=== PATIENT | female | born 2000 | race Caucasian/White ===

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

== ENCOUNTER 2019-06-01 18:19 | Emergency (ER) | payer OTHER ==
[~2019-06-01] VITALS: Ht 170.1 cm; Wt 90.7 kg
[~2019-06-01 18:19] MED LIST changes: +CEPHALEXIN500 M1 PO
[2019-06-01 18:20] VITALS: BP 121/76
[2019-06-01 18:49] LABS: BILIRUBIN NEGATIVE (NEGATIVE); BLOOD 3+ (NEGATIVE); CLARITY CLOUDY (CLEAR); COLOR YELLOW (YELLOW); GLUCOSE NEGATIVE (NEGATIVE); KETONE NEGATIVE (NEGATIVE); LEUKO ESTERASE 3+ (NEGATIVE); NITRITE POSITIVE (NEGATIVE); SPECIFIC GRAVITY 1.015 (1.005-1.030)
[2019-06-01 18:56] LABS: BACTERIA 4+; MUCOUS 2+; WBC TNTC wbc/hpf (0-5)
[2019-06-01] MEDS ORDERED: CEFUROXIME AXE500 MG PO (19:35)
[2019-06-02] MEDS ORDERED: CEFUROXIME AXE500 MG PO (13:06)
== END 2019-06-01 19:44 | disposition home or self-care (01) ==
LOC: ED 18:19
PROVIDERS: Nurse Practitioner Family
DX: B34.9 Viral infection, unspecified (principal); N39.0 Urinary tract infection, site not specified; J02.9 Acute pharyngitis, unspecified; Z72.0 Tobacco use

== ENCOUNTER 2019-07-01 18:46 | Emergency (ER) | payer OTHER ==
[~2019-07-01] VITALS: Ht 170.1 cm; Wt 90.7 kg
[~2019-07-01 18:46] MED LIST changes: +CEFUROXIME AXE500 MG PO
[2019-07-01 18:47] VITALS: BP 122/78
[2019-07-01 19:34] LABS: BILIRUBIN NEGATIVE (NEGATIVE); BLOOD 3+ (NEGATIVE); CLARITY SL CLOUDY (CLEAR); COLOR YELLOW (YELLOW); GLUCOSE NEGATIVE (NEGATIVE); KETONE NEGATIVE (NEGATIVE); LEUKO ESTERASE 1+ (NEGATIVE); NITRITE NEGATIVE (NEGATIVE); PH 5.5 (5.0-9.0); SPECIFIC GRAVITY 1.025 (1.005-1.030); UROBILINOGEN 0.2 E.U./dl (0.2-1.0)
[2019-07-01 19:42] LABS: BACTERIA 2+; WBC 21-30 wbc/hpf (0-5)
[2019-07-01 20:14] LABS: BASO % 0.3 % (0.0-1.0); EOS # 0.2 10*3/uL (0.0-0.4); EOS % 2.5 % (1.0-4.0); HEMATOCRIT 37.4 % (37.0-47.0); HEMOGLOBIN 11.7 g/dl (12.0-16.0); LYMPH # 1.8 10*3/uL (1.3-4.4); LYMPH % 30.3 % (27.0-41.0); MEAN CELL VOLUME 91.9 fl (81.0-99.0); MEAN CORPUSCULAR HGB 28.7 pg (27.0-31.0); MEAN CORPUSCULAR HGB CONC 31.3 g/dl (33.0-37.0); MEAN PLATELET VOLUME 10.5 fl (9.6-12.3); MONO # 0.7 10*3/uL (0.1-1.0); MONO % 11.7 % (3.0-9.0); NEUT # 3.3 10*3/uL (2.3-7.9); NEUT % 54.9 % (47.0-73.0); PLATELET COUNT AUTOMATED 170 10*3/uL (130-400); RED BLOOD COUNT 4.07 10*6/uL (4.10-5.10); RED CELL DISTRI WIDTH 14.1 % (0-14.5)
[2019-07-01 20:30] LABS: ALBUMIN 3.3 gm/dl (3.1-4.5); ALKALINE PHOSPHATASE 74 U/L (45-117); BUN 7 mg/dl (7-24); CHLORIDE 101 mmol/L (98-107); CREATININE 0.67 mg/dL (0.55-1.02); LIPASE 72 U/L (73-393); POTASSIUM 3.5 mmol/L (3.5-5.1); SGOT/AST 8 IU/L (3-35); SGPT/ALT 20 U/L (12-78); SODIUM 137 mmol/L (136-145)
[2019-07-01] MEDS ORDERED: CITROMA296 ML PO (20:48)
[2019-07-01] MEDS ORDERED: SEPTDS PO (20:48)
== END 2019-07-01 20:53 | disposition home or self-care (01) ==
LOC: ED 18:46
PROVIDERS: Physician Assistant
DX: N39.0 Urinary tract infection, site not specified (principal); F17.200 Nicotine dependence, unspecified, uncomplicated

== ENCOUNTER 2019-07-03 02:22 | Emergency (ER) | payer OTHER ==
[~2019-07-03] VITALS: Ht 172.7 cm; Wt 90.7 kg
[~2019-07-03 02:22] MED LIST changes: +CITROMA296 ML PO; +SEPTDS PO
[2019-07-03 02:49] LABS: BASO % 0.4 % (0.0-1.0); EOS # 0.1 10*3/uL (0.0-0.4); HEMOGLOBIN 11.7 g/dl (12.0-16.0); LYMPH # 1.8 10*3/uL (1.3-4.4); LYMPH % 37.5 % (27.0-41.0); MEAN CELL VOLUME 89.6 fl (81.0-99.0); MEAN CORPUSCULAR HGB 28.3 pg (27.0-31.0); MEAN CORPUSCULAR HGB CONC 31.6 g/dl (33.0-37.0); MEAN PLATELET VOLUME 10.3 fl (9.6-12.3); MONO # 0.5 10*3/uL (0.1-1.0); MONO % 9.8 % (3.0-9.0); NEUT # 2.3 10*3/uL (2.3-7.9); NEUT % 49.1 % (47.0-73.0); PLATELET COUNT AUTOMATED 190 10*3/uL (130-400); RED BLOOD COUNT 4.13 10*6/uL (4.10-5.10); WHITE BLOOD COUNT 4.7 10*3/uL (4.8-10.8)
[2019-07-03 03:05] LABS: ALBUMIN 3.6 gm/dl (3.1-4.5); ALKALINE PHOSPHATASE 69 U/L (45-117); BUN 6 mg/dl (7-24); CHLORIDE 103 mmol/L (98-107); CREATININE 0.85 mg/dL (0.55-1.02); POTASSIUM 3.9 mmol/L (3.5-5.1); SGOT/AST 11 IU/L (3-35); SGPT/ALT 20 U/L (12-78); SODIUM 137 mmol/L (136-145); TOTAL PROTEIN 7.2 gm/dL (6.4-8.2)
[2019-07-03 03:14] LABS: TROPONIN I < 0.015 ng/ml (<0.045)
[2019-07-03 03:36] LABS: URINE AMPHETAMINES > 1000 (1000ng/ml); URINE BARBITURATES < 200 (200ng/ml); URINE BENZODIAZEPINES < 200 (200ng/ml); URINE CANNABINOIDS (THC) < 50 (50ng/ml); URINE COCAINE < 300 (300ng/ml); URINE METHADONE < 300 (300ng/ml); URINE OPIATES < 300 (300ng/ml)
[2019-07-03 03:37] LABS: URINE PHENCYCLIDINE < 25 (25ng/ml)
[2019-07-03 05:22] VITALS: BP 101/61
== END 2019-07-03 06:40 | disposition home or self-care (01) ==
LOC: ED 02:22
PROVIDERS: Emergency Medicine
DX: R07.89 Other chest pain (principal); R00.2 Palpitations; F15.10 Other stimulant abuse, uncomplicated; E66.9 Obesity, unspecified; F17.200 Nicotine dependence, unspecified, uncomplicated; Z68.34 Body mass index [BMI] 34.0-34.9, adult

== ENCOUNTER → 2019-08-13 | Outpatient (CLI) | payer OTHER ==
[~2019-08-13] MED LIST changes: +PRENATAL TABLE1 EAC2 PO
== END | disposition home or self-care (01) ==
LOC: CARD 01:25
DX: F19.10 Other psychoactive substance abuse, uncomplicated (principal)

== ENCOUNTER 2019-08-23 21:18 | Emergency (ER) | payer OTHER ==
[~2019-08-23] VITALS: Ht 172.7 cm; Wt 87.1 kg
[~2019-08-23 21:18] MED LIST changes: -PRENATAL TABLE1 EAC2 PO
[2019-08-23 21:30] VITALS: BP 106/59
[2019-08-23 22:37] LABS: BILIRUBIN NEGATIVE (NEGATIVE); BLOOD NEGATIVE (NEGATIVE); CLARITY CLEAR (CLEAR); COLOR YELLOW (YELLOW); GLUCOSE NEGATIVE (NEGATIVE); KETONE NEGATIVE (NEGATIVE); LEUKO ESTERASE NEGATIVE (NEGATIVE); NITRITE NEGATIVE (NEGATIVE); SPECIFIC GRAVITY >= 1.030 (1.005-1.030); UROBILINOGEN 0.2 E.U./dl (0.2-1.0)
[2019-08-23 22:45] LABS: BACTERIA TRACE; MUCOUS TRACE
[2019-08-23] MEDS ORDERED: PRENATAL TABLE1 EAC2 PO (23:29)
[2019-08-23 23:47] LABS: URINE AMPHETAMINES > 1000 (1000ng/ml); URINE BARBITURATES < 200 (200ng/ml); URINE BENZODIAZEPINES < 200 (200ng/ml); URINE CANNABINOIDS (THC) < 50 (50ng/ml); URINE COCAINE < 300 (300ng/ml); URINE METHADONE < 300 (300ng/ml); URINE OPIATES < 300 (300ng/ml)
[2019-08-23 23:48] LABS: URINE PHENCYCLIDINE < 25 (25ng/ml)
== END 2019-08-23 23:40 | disposition home or self-care (01) ==
LOC: ED 21:18
PROVIDERS: Nurse Practitioner Family
DX: Z32.01 Encounter for pregnancy test, result positive (principal); E66.9 Obesity, unspecified; F17.200 Nicotine dependence, unspecified, uncomplicated

== ENCOUNTER 2019-08-29 18:37 | Emergency (ER) | payer OTHER ==
[~2019-08-29] VITALS: Ht 170.1 cm; Wt 87.1 kg
[~2019-08-29 18:37] MED LIST changes: +PRENATAL TABLE1 EAC2 PO
[2019-08-29 18:39] VITALS: BP 122/64
== END 2019-08-29 21:34 | disposition home or self-care (01) ==
LOC: ED 18:37
DX: O9A.211 Injury, poisoning and certain other consequences of external causes complicating pregnancy, first trimester (principal); S96.911A Strain of unspecified muscle and tendon at ankle and foot level, right foot, initial encounter; E66.9 Obesity, unspecified; Z3A.08 8 weeks gestation of pregnancy; Z72.0 Tobacco use; W10.8XXA Fall (on) (from) other stairs and steps, initial encounter; Y93.89 Activity, other specified; Y92.89 Other specified places as the place of occurrence of the external cause; Y99.8 Other external cause status

== ENCOUNTER → 2019-09-19 | Outpatient (CLI) | payer OTHER | END | disposition home or self-care (01) | LOC: US 13:00 | DX: Z34.81 Encounter for supervision of other normal pregnancy, first trimester (principal); Z3A.01 Less than 8 weeks gestation of pregnancy ==

== ENCOUNTER 2020-03-22 18:51 | Emergency (ER) | payer OTHER ==
[~2020-03-22] VITALS: Ht 170.1 cm; Wt 108.9 kg
[2020-03-22 18:59] VITALS: BP 122/69
[2020-03-22] MEDS ORDERED: PREDNISONE20 M1 PO (19:10)
[2020-03-22] MEDS ORDERED: CEFADROXIL500 M1 PO (19:10)
== END 2020-03-22 19:20 | disposition home or self-care (01) ==
LOC: ED 18:51
DX: L25.9 Unspecified contact dermatitis, unspecified cause (principal); L08.9 Local infection of the skin and subcutaneous tissue, unspecified; Z72.0 Tobacco use

== ENCOUNTER 2020-07-29 19:33 | Emergency (ER) | payer OTHER ==
[~2020-07-29] VITALS: Ht 170.1 cm; Wt 99.8 kg
[~2020-07-29 19:33] MED LIST changes: +CEFADROXIL500 M1 PO; +PREDNISONE20 M1 PO
[2020-07-29 19:45] VITALS: BP 121/75
== END 2020-07-29 21:52 | disposition home or self-care (01) ==
LOC: ED 19:33
DX: J06.9 Acute upper respiratory infection, unspecified (principal); Z20.828 Contact with and (suspected) exposure to other viral communicable diseases; Z79.899 Other long term (current) drug therapy

== ENCOUNTER 2020-08-11 20:07 | Emergency (ER) | payer OTHER ==
[2020-08-11 20:17] VITALS: BP 114/65
[2020-08-11] MEDS ORDERED: CEPHALEXIN500 M1 PO (20:25)
== END 2020-08-11 20:35 | disposition home or self-care (01) ==
LOC: ED 20:07
DX: S51.802A Unspecified open wound of left forearm, initial encounter (principal); Z79.899 Other long term (current) drug therapy; X58.XXXA Exposure to other specified factors, initial encounter; Y93.89 Activity, other specified; Y92.89 Other specified places as the place of occurrence of the external cause; Y99.8 Other external cause status

== ENCOUNTER 2020-10-25 19:46 | Emergency (ER) | payer OTHER ==
[~2020-10-25] VITALS: Ht 170.1 cm; Wt 99.8 kg
[2020-10-25 21:08] LABS: BASO % 0.6 % (0.0-1.0); EOS # 0.4 10*3/uL (0.0-0.4); EOS % 5.2 % (1.0-4.0); HEMATOCRIT 37.5 % (37.0-47.0); LYMPH # 1.9 10*3/uL (1.3-4.4); MEAN CELL VOLUME 84.1 fl (81.0-99.0); MEAN CORPUSCULAR HGB 26.2 pg (27.0-31.0); MEAN CORPUSCULAR HGB CONC 31.2 g/dl (33.0-37.0); MEAN PLATELET VOLUME 10.7 fl (9.6-12.3); MONO # 0.6 10*3/uL (0.1-1.0); MONO % 9.1 % (3.0-9.0); NEUT # 3.7 10*3/uL (2.3-7.9); NEUT % 55.8 % (47.0-73.0); PLATELET COUNT AUTOMATED 253 10*3/uL (130-400); RED BLOOD COUNT 4.46 10*6/uL (4.10-5.10); RED CELL DISTRI WIDTH 15.9 % (0-14.5); WHITE BLOOD COUNT 6.7 10*3/uL (4.8-10.8)
[2020-10-25 21:23] LABS: INTERNATIONAL NORM RATIO 1.1 (2.0-3.5)
[2020-10-25 21:24] LABS: ALBUMIN 3.5 gm/dl (3.1-4.5); ALKALINE PHOSPHATASE 62 U/L (45-117); BUN 9 mg/dl (7-24); CHLORIDE 108 mmol/L (98-107); CREATININE 1.55 mg/dL (0.55-1.02); POTASSIUM 4.6 mmol/L (3.5-5.1); SGOT/AST 31 IU/L (3-35); SGPT/ALT 32 U/L (12-78); SODIUM 141 mmol/L (136-145); TOTAL PROTEIN 6.8 gm/dL (6.4-8.2)
[2020-10-25 21:25] LABS: B-hCG (QUALITATIVE) NEGATIVE (NEGATIVE)
[2020-10-25 21:26] LABS: TROPONIN I < 0.015 ng/ml (<0.045)
[2020-10-25 22:49] LABS: BILIRUBIN Negative (Negative); BLOOD Negative (Negative); CLARITY Cloudy (Clear); COLOR Yellow (Yellow); GLUCOSE Negative (Negative); KETONE Negative (Negative); LEUKO ESTERASE Negative (Negative); NITRITE Negative (Negative); SPECIFIC GRAVITY 1.015 (1.001-1.030)
[2020-10-25 23:01] LABS: BACTERIA TRACE; RBC 0-2 rbc/hpf (0-2); WBC 0-2 wbc/hpf (0-5)
[2020-10-25 23:19] LABS: URINE AMPHETAMINES > 1000 (1000ng/ml); URINE BARBITURATES < 200 (200ng/ml); URINE BENZODIAZEPINES < 200 (200ng/ml); URINE CANNABINOIDS (THC) < 50 (50ng/ml); URINE COCAINE < 300 (300ng/ml); URINE METHADONE < 300 (300ng/ml); URINE OPIATES < 300 (300ng/ml)
[2020-10-25 23:21] LABS: URINE PHENCYCLIDINE < 25 (25ng/ml)
[2020-10-26 02:14] VITALS: BP 101/54
== END 2020-10-26 02:55 | disposition short-term general hospital (02) ==
LOC: ED 19:46
PROVIDERS: Physician Assistant
DX: R60.9 Edema, unspecified (principal); M54.2 Cervicalgia; R45.1 Restlessness and agitation; F17.200 Nicotine dependence, unspecified, uncomplicated; Z79.899 Other long term (current) drug therapy; Z79.2 Long term (current) use of antibiotics; F11.90 Opioid use, unspecified, uncomplicated

== ENCOUNTER 2021-01-09 18:29 | Emergency (ER) | payer OTHER ==
[~2021-01-09] VITALS: Ht 172.7 cm; Wt 90.7 kg
[2021-01-09 18:49] LABS: BASO % 0.8 % (0.0-1.0); EOS # 0.2 10*3/uL (0.0-0.4); EOS % 4.7 % (1.0-4.0); HEMATOCRIT 37.3 % (37.0-47.0); LYMPH # 2.6 10*3/uL (1.3-4.4); LYMPH % 50.3 % (27.0-41.0); MEAN CORPUSCULAR HGB 24.8 pg (27.0-31.0); MEAN CORPUSCULAR HGB CONC 30.3 g/dl (33.0-37.0); MEAN PLATELET VOLUME 9.1 fl (9.6-12.3); MONO # 0.4 10*3/uL (0.1-1.0); MONO % 7.7 % (3.0-9.0); NEUT # 1.9 10*3/uL (2.3-7.9); NEUT % 36.5 % (47.0-73.0); PLATELET COUNT AUTOMATED 192 10*3/uL (130-400); RED BLOOD COUNT 4.55 10*6/uL (4.10-5.10); RED CELL DISTRI WIDTH 15.4 % (0-14.5); WHITE BLOOD COUNT 5.1 10*3/uL (4.8-10.8)
[2021-01-09 19:04] LABS: ACT PARTIAL THROMBO TIME 26.9 SECONDS (20.0-32.1); INTERNATIONAL NORM RATIO 1.1 (2.0-3.5)
[2021-01-09 19:07] LABS: ALBUMIN 3.4 gm/dl (3.1-4.5); ALKALINE PHOSPHATASE 68 U/L (45-117); BUN 14 mg/dl (7-24); CHLORIDE 106 mmol/L (98-107); CPK 362 U/L (26-192); CREATININE 1.04 mg/dL (0.55-1.02); ETHYL ALCOHOL < 3.0 mg/dl (<3); POTASSIUM 3.4 mmol/L (3.5-5.1); SGOT/AST 15 IU/L (3-35); SGPT/ALT 29 U/L (12-78); SODIUM 141 mmol/L (136-145); TOTAL PROTEIN 6.8 gm/dL (6.4-8.2)
[2021-01-09 19:10] LABS: B-hCG (QUALITATIVE) NEGATIVE (NEGATIVE)
[2021-01-09 22:00] VITALS: BP 118/82
== END 2021-01-09 23:29 ==
LOC: ED 18:29
PROVIDERS: Emergency Medicine
DX: F41.9 Anxiety disorder, unspecified (principal); F17.200 Nicotine dependence, unspecified, uncomplicated; E66.9 Obesity, unspecified; Z68.34 Body mass index [BMI] 34.0-34.9, adult; Z79.899 Other long term (current) drug therapy

== ENCOUNTER 2021-05-02 09:02 | Emergency (ER) | payer OTHER ==
[~2021-05-02] VITALS: Ht 170.1 cm; Wt 90.7 kg
[2021-05-02 09:07] VITALS: BP 111/73
[2021-05-02] MEDS ORDERED: NAPROXEN250 MG PO (09:49)
[2021-05-02] MEDS ORDERED: TYLENOL325 M1 PO (09:49)
== END 2021-05-02 10:08 | disposition home or self-care (01) ==
LOC: ED 09:02
DX: R20.2 Paresthesia of skin (principal); F41.9 Anxiety disorder, unspecified; E66.9 Obesity, unspecified; F17.200 Nicotine dependence, unspecified, uncomplicated; Z79.899 Other long term (current) drug therapy; Z79.2 Long term (current) use of antibiotics; Z68.30 Body mass index [BMI] 30.0-30.9, adult

== ENCOUNTER 2021-05-04 22:27 | Emergency (ER) | payer OTHER ==
[~2021-05-04] VITALS: Ht 175.2 cm; Wt 90.7 kg
[~2021-05-04 22:27] MED LIST changes: +NAPROXEN250 MG PO; +TYLENOL325 M1 PO
[2021-05-04 22:32] VITALS: BP 133/92
== END 2021-05-05 01:36 | disposition home or self-care (01) ==
LOC: ED 22:27
DX: T40.1X1A Poisoning by heroin, accidental (unintentional), initial encounter (principal); Y92.89 Other specified places as the place of occurrence of the external cause

== ENCOUNTER 2021-05-06 16:10 | Emergency (ER) | payer OTHER ==
[~2021-05-06] VITALS: Wt 90.7 kg
[2021-05-06 17:08] LABS: HEMATOCRIT 41.8 % (37.0-47.0); MEAN CELL VOLUME 79.6 fl (81.0-99.0); MEAN CORPUSCULAR HGB CONC 28.9 g/dl (33.0-37.0); MEAN PLATELET VOLUME 10.3 fl (9.6-12.3); PLATELET COUNT AUTOMATED 189 10*3/uL (130-400); RED BLOOD COUNT 5.25 10*6/uL (4.10-5.10); RED CELL DISTRI WIDTH 15.7 % (0-14.5); WHITE BLOOD COUNT 5.4 10*3/uL (4.8-10.8)
[2021-05-06 17:22] LABS: ALBUMIN 3.5 gm/dl (3.1-4.5); ALKALINE PHOSPHATASE 77 U/L (45-117); BUN 9 mg/dl (7-24); CHLORIDE 108 mmol/L (98-107); CREATININE 0.97 mg/dL (0.55-1.02); LIPASE 114 U/L (73-393); POTASSIUM 4.4 mmol/L (3.5-5.1); SGOT/AST 25 IU/L (3-35); SGPT/ALT 43 U/L (12-78); SODIUM 141 mmol/L (136-145); TOTAL PROTEIN 7.2 gm/dL (6.4-8.2)
[2021-05-06 17:25] LABS: BETA-HCG, QUANT < 1.0 mIU/mL (1-3); TROPONIN I < 0.015 ng/ml (<0.045)
[2021-05-06 17:31] LABS: ATYPICAL LYMPHS 2 % (0-0); PLATELET SUFFICIENCY NORMAL (NORMAL); TOTAL CELLS COUNTED 100 #CELLS
[2021-05-06 17:32] LABS: OVALOCYTES FEW
[2021-05-06 17:55] VITALS: BP 108/59
== END 2021-05-06 19:30 | disposition left against medical advice (07) ==
LOC: ED 16:10
PROVIDERS: Emergency Medicine
DX: R11.10 Vomiting, unspecified (principal); R11.0 Nausea; R10.9 Unspecified abdominal pain; R61 Generalized hyperhidrosis

== ENCOUNTER 2021-05-25 23:33 | Emergency (ER) | payer OTHER ==
[~2021-05-25] VITALS: Ht 170.1 cm; Wt 90.7 kg
[2021-05-26 03:30] VITALS: BP 100/65
[2021-05-26] MEDS ORDERED: CIPRO500 MG PO (04:33)
== END 2021-05-26 05:14 | disposition home or self-care (01) ==
LOC: ED 23:33
DX: L73.8 Other specified follicular disorders (principal); F17.200 Nicotine dependence, unspecified, uncomplicated; Z79.899 Other long term (current) drug therapy

== ENCOUNTER 2021-05-29 15:46 | Emergency (ER) | payer OTHER ==
[~2021-05-29] VITALS: Ht 170.1 cm; Wt 90.7 kg
[~2021-05-29 15:46] MED LIST changes: +CIPRO500 MG PO
[2021-05-29 16:03] VITALS: BP 99/61
== END 2021-05-29 20:49 | disposition left against medical advice (07) ==
LOC: ED 15:46
DX: T40.1X1A Poisoning by heroin, accidental (unintentional), initial encounter (principal); Y92.89 Other specified places as the place of occurrence of the external cause

== ENCOUNTER 2021-06-20 16:12 | Emergency (ER) | payer OTHER ==
[~2021-06-20] VITALS: Ht 170.1 cm; Wt 90.7 kg
[2021-06-20 17:13] VITALS: BP 136/67
[2021-06-20 18:13] LABS: BASO % 0.4 % (0.0-1.0); EOS # 0.3 10*3/uL (0.0-0.4); EOS % 3.4 % (1.0-4.0); HEMATOCRIT 32.8 % (37.0-47.0); LYMPH # 2.2 10*3/uL (1.3-4.4); LYMPH % 27.5 % (27.0-41.0); MEAN CELL VOLUME 75.4 fl (81.0-99.0); MEAN CORPUSCULAR HGB 21.4 pg (27.0-31.0); MEAN CORPUSCULAR HGB CONC 28.4 g/dl (33.0-37.0); MONO # 0.7 10*3/uL (0.1-1.0); MONO % 9.3 % (3.0-9.0); NEUT # 4.7 10*3/uL (2.3-7.9); PLATELET COUNT AUTOMATED 337 10*3/uL (130-400); RED BLOOD COUNT 4.35 10*6/uL (4.10-5.10); RED CELL DISTRI WIDTH 16.6 % (0-14.5); WHITE BLOOD COUNT 7.9 10*3/uL (4.8-10.8)
[2021-06-20 18:28] LABS: ALBUMIN 3.1 gm/dl (3.1-4.5); ALKALINE PHOSPHATASE 89 U/L (45-117); BUN 9 mg/dl (7-24); CHLORIDE 108 mmol/L (98-107); CREATININE 0.97 mg/dL (0.55-1.02); POTASSIUM 3.5 mmol/L (3.5-5.1); SGOT/AST 49 IU/L (3-35); SGPT/ALT 86 U/L (12-78); SODIUM 141 mmol/L (136-145); TOTAL PROTEIN 7.5 gm/dL (6.4-8.2)
[2021-06-20] MEDS ORDERED: VIBRAMYCIN100 MG PO (19:35)
== END 2021-06-20 19:40 | disposition home or self-care (01) ==
LOC: ED 16:12
PROVIDERS: Internal Medicine
DX: L03.114 Cellulitis of left upper limb (principal); F17.200 Nicotine dependence, unspecified, uncomplicated; Z79.899 Other long term (current) drug therapy; Z79.2 Long term (current) use of antibiotics

== ENCOUNTER 2021-07-11 14:56 | Emergency (ER) | payer OTHER ==
[~2021-07-11 14:56] MED LIST changes: +VIBRAMYCIN100 MG PO
[2021-07-11 15:14] VITALS: BP 123/63
[2021-07-11] MEDS ORDERED: AMOXICILLIN875 MG PO (15:31)
[2021-07-11] MEDS ORDERED: VICO10300 PO (15:31)
== END 2021-07-11 15:44 | disposition home or self-care (01) ==
LOC: ED 14:56
DX: L02.01 Cutaneous abscess of face (principal); F17.200 Nicotine dependence, unspecified, uncomplicated; Z79.899 Other long term (current) drug therapy; Z79.2 Long term (current) use of antibiotics

== ENCOUNTER 2021-07-13 22:52 | Emergency (ER) | payer OTHER ==
[~2021-07-13] VITALS: Ht 170.1 cm; Wt 103.4 kg
[~2021-07-13 22:52] MED LIST changes: +AMOXICILLIN875 MG PO; +VICO10300 PO
[2021-07-13 22:55] VITALS: BP 149/71
== END 2021-07-14 00:21 | disposition home or self-care (01) ==
LOC: ED 22:52
DX: T40.1X2A Poisoning by heroin, intentional self-harm, initial encounter (principal); F17.200 Nicotine dependence, unspecified, uncomplicated; Y92.89 Other specified places as the place of occurrence of the external cause

== ENCOUNTER 2021-08-09 11:45 | Emergency (ER) | payer SELFPAY ==
[~2021-08-09] VITALS: Ht 175.2 cm; Wt 90.7 kg
[2021-08-09 11:46] VITALS: BP 134/102
[2021-08-09 12:10] LABS: BASO % 0.4 % (0.0-1.0); EOS # 0.1 10*3/uL (0.0-0.4); EOS % 2.4 % (1.0-4.0); LYMPH # 1.7 10*3/uL (1.3-4.4); LYMPH % 33.3 % (27.0-41.0); MEAN CELL VOLUME 75.4 fl (81.0-99.0); MEAN CORPUSCULAR HGB CONC 29.2 g/dl (33.0-37.0); MEAN PLATELET VOLUME 8.9 fl (9.6-12.3); MONO # 0.5 10*3/uL (0.1-1.0); NEUT # 2.7 10*3/uL (2.3-7.9); NEUT % 54.7 % (47.0-73.0); PLATELET COUNT AUTOMATED 214 10*3/uL (130-400); RED BLOOD COUNT 4.91 10*6/uL (4.10-5.10); RED CELL DISTRI WIDTH 19.5 % (0-14.5)
[2021-08-09 12:24] LABS: ALBUMIN 3.4 gm/dl (3.1-4.5); ALKALINE PHOSPHATASE 94 U/L (45-117); BUN 11 mg/dl (7-24); CHLORIDE 107 mmol/L (98-107); CREATININE 0.91 mg/dL (0.55-1.02); POTASSIUM 3.3 mmol/L (3.5-5.1); SGOT/AST 102 IU/L (3-35); SGPT/ALT 128 U/L (12-78); SODIUM 139 mmol/L (136-145); TOTAL PROTEIN 7.4 gm/dL (6.4-8.2)
== END 2021-08-09 14:25 | disposition left against medical advice (07) ==
LOC: ED 11:45
PROVIDERS: Physician Assistant
DX: T40.1X1A Poisoning by heroin, accidental (unintentional), initial encounter (principal); Y92.89 Other specified places as the place of occurrence of the external cause

== ENCOUNTER 2021-09-07 23:41 | Emergency (ER) | payer MEDICAID ==
[2021-09-07 23:54] VITALS: BP 120/76
[2021-09-08] MEDS ORDERED: AUGMENTIN 875875 MG PO (00:19)
[2021-09-08] MEDS ORDERED: VIBRAMYCIN100 MG PO (00:19)
== END 2021-09-08 00:57 | disposition home or self-care (01) ==
LOC: ED 23:41
DX: L03.011 Cellulitis of right finger (principal)

== ENCOUNTER 2021-10-14 08:17 | Emergency (ER) | payer OTHER ==
[~2021-10-14 08:17] MED LIST changes: +AUGMENTIN 875875 MG PO
[2021-10-14 08:22] VITALS: BP 125/67
[2021-10-14 08:55] LABS: BASO % 0.5 % (0.0-1.0); EOS % 0.5 % (1.0-4.0); HEMATOCRIT 23.4 % (37.0-47.0); LYMPH # 2.6 10*3/uL (1.3-4.4); LYMPH % 31.7 % (27.0-41.0); MEAN CELL VOLUME 70.5 fl (81.0-99.0); MEAN CORPUSCULAR HGB 21.4 pg (27.0-31.0); MEAN CORPUSCULAR HGB CONC 30.3 g/dl (33.0-37.0); MEAN PLATELET VOLUME 10.1 fl (9.6-12.3); MONO % 12.1 % (3.0-9.0); NEUT # 4.4 10*3/uL (2.3-7.9); NEUT % 54.3 % (47.0-73.0); PLATELET COUNT AUTOMATED 161 10*3/uL (130-400); RED BLOOD COUNT 3.32 10*6/uL (4.10-5.10); RED CELL DISTRI WIDTH 17.3 % (0-14.5); WHITE BLOOD COUNT 8.2 10*3/uL (4.8-10.8)
[2021-10-14 09:09] LABS: ALBUMIN 2.2 gm/dl (3.1-4.5); ALKALINE PHOSPHATASE 107 U/L (45-117); BUN 22 mg/dl (7-24); CHLORIDE 102 mmol/L (98-107); CREATININE 1.09 mg/dL (0.55-1.02); LIPASE 38 U/L (73-393); POTASSIUM 3.1 mmol/L (3.5-5.1); SGOT/AST 52 IU/L (3-35); SGPT/ALT 36 U/L (12-78); SODIUM 137 mmol/L (136-145); TOTAL PROTEIN 7.2 gm/dL (6.4-8.2)
[2021-10-14 09:11] LABS: BETA-HCG, QUANT < 1.0 mIU/mL (1-3)
[2021-10-14] MEDS ORDERED: ZITHROMAX250 MG PO (11:07)
== END 2021-10-14 11:09 | disposition home or self-care (01) ==
LOC: ED 08:17
PROVIDERS: Emergency Medicine
DX: J18.9 Pneumonia, unspecified organism (principal); Z20.822 Contact with and (suspected) exposure to COVID-19; D64.9 Anemia, unspecified; Z87.891 Personal history of nicotine dependence

== ENCOUNTER 2021-10-15 10:50 | Inpatient (IN) | payer OTHER ==
[~2021-10-15] VITALS: Ht 170.1 cm; Wt 85.3 kg
[~2021-10-15 10:50] MED LIST changes: +ZITHROMAX250 MG PO
[2021-10-15 10:57] VITALS: BP 106/95
[2021-10-15 12:08] LABS: BASO # 0.1 10*3/uL (0.0-0.1); BASO % 0.6 % (0.0-1.0); EOS # 0.1 10*3/uL (0.0-0.4); EOS % 0.6 % (1.0-4.0); HEMATOCRIT 24.9 % (37.0-47.0); LYMPH # 2.1 10*3/uL (1.3-4.4); LYMPH % 19.2 % (27.0-41.0); MEAN CELL VOLUME 69.4 fl (81.0-99.0); MEAN CORPUSCULAR HGB 21.2 pg (27.0-31.0); MEAN CORPUSCULAR HGB CONC 30.5 g/dl (33.0-37.0); MONO # 0.7 10*3/uL (0.1-1.0); MONO % 6.7 % (3.0-9.0); NEUT # 7.8 10*3/uL (2.3-7.9); NEUT % 72.3 % (47.0-73.0); NUCLEATED RED BLOOD CELL 0.2 % (0.0-0.0); RED BLOOD COUNT 3.59 10*6/uL (4.10-5.10); RED CELL DISTRI WIDTH 17.5 % (0-14.5); WHITE BLOOD COUNT 10.8 10*3/uL (4.8-10.8)
[2021-10-15 12:09] LABS: PLATELET COUNT AUTOMATED 258 10*3/uL (130-400)
[2021-10-15 12:15] LABS: ACT PARTIAL THROMBO TIME 26.2 SECONDS (20.0-32.1); INTERNATIONAL NORM RATIO 1.3 (2.0-3.5)
[2021-10-15 12:21] LABS: ALBUMIN 2.4 gm/dl (3.1-4.5); BUN 25 mg/dl (7-24); CHLORIDE 101 mmol/L (98-107); CREATININE 1.43 mg/dL (0.55-1.02); LIPASE 29 U/L (73-393); POTASSIUM 3.3 mmol/L (3.5-5.1); SGOT/AST 35 IU/L (3-35); SGPT/ALT 34 U/L (12-78); SODIUM 133 mmol/L (136-145)
[2021-10-15 12:22] LABS: ALKALINE PHOSPHATASE 104 U/L (45-117); TOTAL PROTEIN 7.3 gm/dL (6.4-8.2)
[2021-10-15 12:35] LABS: BETA-HCG, QUANT < 1.0 mIU/mL (1-3)
[2021-10-15 12:52] LABS: BILIRUBIN 1+ (Negative); BLOOD 3+ (Negative); CLARITY Cloudy (Clear); COLOR Dark Yellow (Yellow); GLUCOSE Negative (Negative); KETONE Trace (Negative); LEUKO ESTERASE Trace (Negative); NITRITE Negative (Negative); PH 5.5 (4.5-8.0); SPECIFIC GRAVITY >= 1.030 (1.001-1.030)
[2021-10-15 13:21] LABS: BACTERIA 2+; EPITHELIAL CELLS 21-30; MUCOUS 2+; RBC TNTC rbc/hpf (0-2); WBC 21-30 wbc/hpf (0-5)
[2021-10-15 18:59] VITALS: BP 154/67
[2021-10-15 22:17] VITALS: BP 113/45
[2021-10-16 05:18] VITALS: BP 114/67
[2021-10-16 06:14] LABS: HEMATOCRIT 24.4 % (37.0-47.0); MEAN CORPUSCULAR HGB 21.3 pg (27.0-31.0); MEAN CORPUSCULAR HGB CONC 29.1 g/dl (33.0-37.0); MEAN PLATELET VOLUME 11.1 fl (9.6-12.3); NUCLEATED RED BLOOD CELL 0.3 % (0.0-0.0); PLATELET COUNT AUTOMATED 210 10*3/uL (130-400); RED BLOOD COUNT 3.34 10*6/uL (4.10-5.10); RED CELL DISTRI WIDTH 17.6 % (0-14.5); WHITE BLOOD COUNT 7.7 10*3/uL (4.8-10.8)
[2021-10-16 06:18] LABS: ALBUMIN 1.9 gm/dl (3.1-4.5); CHLORIDE 108 mmol/L (98-107); POTASSIUM 3.2 mmol/L (3.5-5.1); SODIUM 139 mmol/L (136-145)
[2021-10-16 06:27] LABS: ALKALINE PHOSPHATASE 84 U/L (45-117); CHOLESTEROL 84 mg/dL (<200); CREATININE 0.94 mg/dL (0.55-1.02); FREE T4 1.66 ng/dl (0.76-1.46); LDL CHOLESTEROL 40 mg/dL (9-159); SGOT/AST 22 IU/L (3-35); SGPT/ALT 26 U/L (12-78); TOTAL PROTEIN 6.2 gm/dL (6.4-8.2); TRIGLYCERIDES 174 mg/dl (<150)
[2021-10-16 06:31] LABS: ACT PARTIAL THROMBO TIME 25.5 SECONDS (20.0-32.1); INTERNATIONAL NORM RATIO 1.2 (2.0-3.5)
[2021-10-16 06:33] LABS: BUN 15 mg/dl (7-24)
[2021-10-16 06:49] LABS: MEAN CELL VOLUME 73.1 fl (81.0-99.0)
[2021-10-16 06:54] LABS: BASOPHILS 2 % (0-1); BURR CELLS MODERATE; OVALOCYTES MODERATE; PLATELET SUFFICIENCY NORMAL (NORMAL); POLYCHROMASIA SLIGHT; TOTAL CELLS COUNTED 100 #CELLS
[2021-10-16 06:55] LABS: MICROCYTOSIS SLIGHT
[2021-10-16 07:50] VITALS: BP 113/82
[2021-10-16 08:00] VITALS: BP 113/82
[2021-10-16] MEDS ORDERED: BUPRENORPHINE-1 EAC1 SL (09:35)
[2021-10-16 12:00] VITALS: BP 126/63
[2021-10-16 16:00] VITALS: BP 125/66
[2021-10-16 19:45] VITALS: BP 122/54
[2021-10-16 23:24] LABS: URINE AMPHETAMINES > 1000 (1000ng/ml); URINE BARBITURATES < 200 (200ng/ml); URINE BENZODIAZEPINES < 200 (200ng/ml); URINE CANNABINOIDS (THC) < 50 (50ng/ml); URINE COCAINE < 300 (300ng/ml); URINE METHADONE < 300 (300ng/ml); URINE OPIATES < 300 (300ng/ml)
[2021-10-16 23:29] LABS: URINE PHENCYCLIDINE < 25 (25ng/ml)
[2021-10-17] VITALS (19 sets, daily range): BP systolic 100–122; BP diastolic 54–73
[2021-10-17 06:55] LABS: MEAN CELL VOLUME 73.3 fl (81.0-99.0); MEAN CORPUSCULAR HGB 21.9 pg (27.0-31.0); MEAN CORPUSCULAR HGB CONC 29.8 g/dl (33.0-37.0); MEAN PLATELET VOLUME 9.1 fl (9.6-12.3); PLATELET COUNT AUTOMATED 164 10*3/uL (130-400); RED CELL DISTRI WIDTH 17.9 % (0-14.5)
[2021-10-17 07:08] LABS: ALBUMIN 1.7 gm/dl (3.1-4.5); BUN 8 mg/dl (7-24); CHLORIDE 108 mmol/L (98-107); POTASSIUM 3.8 mmol/L (3.5-5.1); SODIUM 138 mmol/L (136-145)
[2021-10-17 07:09] LABS: HEMATOCRIT 19.8 % (37.0-47.0)
[2021-10-17 07:12] LABS: ALKALINE PHOSPHATASE 74 U/L (45-117); CREATININE 0.75 mg/dL (0.55-1.02); SGOT/AST 11 IU/L (3-35); SGPT/ALT 18 U/L (12-78); TOTAL PROTEIN 5.8 gm/dL (6.4-8.2)
[2021-10-17 07:16] LABS: BASOPHILS 1 % (0-1); MICROCYTOSIS SLIGHT; PLATELET SUFFICIENCY NORMAL (NORMAL); TOTAL CELLS COUNTED 100 #CELLS
[2021-10-17 07:17] LABS: OVALOCYTES FEW; POLYCHROMASIA SLIGHT
[2021-10-17 17:48] LABS: BASO % 0.3 % (0.0-1.0); EOS # 0.1 10*3/uL (0.0-0.4); EOS % 0.7 % (1.0-4.0); HEMATOCRIT 25.5 % (37.0-47.0); LYMPH # 1.8 10*3/uL (1.3-4.4); LYMPH % 26.5 % (27.0-41.0); MEAN CELL VOLUME 74.6 fl (81.0-99.0); MEAN CORPUSCULAR HGB 22.5 pg (27.0-31.0); MEAN CORPUSCULAR HGB CONC 30.2 g/dl (33.0-37.0); MEAN PLATELET VOLUME 9.2 fl (9.6-12.3); MONO # 0.5 10*3/uL (0.1-1.0); MONO % 6.9 % (3.0-9.0); NEUT # 4.4 10*3/uL (2.3-7.9); NEUT % 64.7 % (47.0-73.0); NUCLEATED RED BLOOD CELL 0.3 % (0.0-0.0); PLATELET COUNT AUTOMATED 181 10*3/uL (130-400); RED BLOOD COUNT 3.42 10*6/uL (4.10-5.10); RED CELL DISTRI WIDTH 18.7 % (0-14.5); WHITE BLOOD COUNT 6.8 10*3/uL (4.8-10.8)
[2021-10-17 19:54] LABS: BASO % 0.3 % (0.0-1.0); EOS % 0.6 % (1.0-4.0); HEMATOCRIT 25.4 % (37.0-47.0); LYMPH # 1.9 10*3/uL (1.3-4.4); LYMPH % 27.3 % (27.0-41.0); MEAN CELL VOLUME 75.1 fl (81.0-99.0); MEAN CORPUSCULAR HGB 22.5 pg (27.0-31.0); MEAN CORPUSCULAR HGB CONC 29.9 g/dl (33.0-37.0); MEAN PLATELET VOLUME 9.4 fl (9.6-12.3); MONO # 0.6 10*3/uL (0.1-1.0); MONO % 9.3 % (3.0-9.0); NEUT # 4.2 10*3/uL (2.3-7.9); NEUT % 61.8 % (47.0-73.0); NUCLEATED RED BLOOD CELL 0.3 % (0.0-0.0); PLATELET COUNT AUTOMATED 176 10*3/uL (130-400); RED BLOOD COUNT 3.38 10*6/uL (4.10-5.10); RED CELL DISTRI WIDTH 19.1 % (0-14.5); WHITE BLOOD COUNT 6.8 10*3/uL (4.8-10.8)
[2021-10-18] VITALS: BP 114/65
[2021-10-18 06:26] LABS: ALBUMIN 1.5 gm/dl (3.1-4.5); ALKALINE PHOSPHATASE 66 U/L (45-117); BUN 9 mg/dl (7-24); CHLORIDE 108 mmol/L (98-107); CREATININE 0.52 mg/dL (0.55-1.02); POTASSIUM 4.1 mmol/L (3.5-5.1); SGOT/AST 10 IU/L (3-35); SGPT/ALT 13 U/L (12-78); SODIUM 139 mmol/L (136-145); TOTAL PROTEIN 5.6 gm/dL (6.4-8.2)
[2021-10-18 06:27] LABS: BASO % 0.3 % (0.0-1.0); EOS # 0.1 10*3/uL (0.0-0.4); EOS % 1.2 % (1.0-4.0); LYMPH # 1.7 10*3/uL (1.3-4.4); LYMPH % 27.9 % (27.0-41.0); MEAN CELL VOLUME 74.9 fl (81.0-99.0); MEAN CORPUSCULAR HGB 22.5 pg (27.0-31.0); MEAN PLATELET VOLUME 9.8 fl (9.6-12.3); MONO # 0.5 10*3/uL (0.1-1.0); MONO % 7.6 % (3.0-9.0); NEUT # 3.8 10*3/uL (2.3-7.9); NEUT % 61.8 % (47.0-73.0); PLATELET COUNT AUTOMATED 181 10*3/uL (130-400); RED BLOOD COUNT 3.47 10*6/uL (4.10-5.10); RED CELL DISTRI WIDTH 19.4 % (0-14.5); WHITE BLOOD COUNT 6.1 10*3/uL (4.8-10.8)
[2021-10-18 08:00] VITALS: BP 111/59
[2021-10-18 12:00] VITALS: BP 102/55
[2021-10-18 16:00] VITALS: BP 118/68
[2021-10-18 20:00] VITALS: BP 116/60
[2021-10-19] VITALS: BP 98/60
[2021-10-19 06:48] LABS: ALBUMIN 1.5 gm/dl (3.1-4.5); ALKALINE PHOSPHATASE 73 U/L (45-117); BASO % 0.4 % (0.0-1.0); BUN 7 mg/dl (7-24); CHLORIDE 109 mmol/L (98-107); CREATININE 0.52 mg/dL (0.55-1.02); EOS # 0.1 10*3/uL (0.0-0.4); EOS % 1.4 % (1.0-4.0); HEMATOCRIT 28.9 % (37.0-47.0); LYMPH # 1.8 10*3/uL (1.3-4.4); LYMPH % 31.5 % (27.0-41.0); MEAN CELL VOLUME 76.1 fl (81.0-99.0); MEAN CORPUSCULAR HGB 22.6 pg (27.0-31.0); MEAN CORPUSCULAR HGB CONC 29.8 g/dl (33.0-37.0); MEAN PLATELET VOLUME 9.8 fl (9.6-12.3); MONO # 0.5 10*3/uL (0.1-1.0); MONO % 8.5 % (3.0-9.0); NEUT # 3.2 10*3/uL (2.3-7.9); NEUT % 56.6 % (47.0-73.0); PLATELET COUNT AUTOMATED 204 10*3/uL (130-400); POTASSIUM 4.1 mmol/L (3.5-5.1); RED CELL DISTRI WIDTH 20.5 % (0-14.5); SGOT/AST 9 IU/L (3-35); SGPT/ALT 12 U/L (12-78); SODIUM 139 mmol/L (136-145); TOTAL PROTEIN 6.2 gm/dL (6.4-8.2); WHITE BLOOD COUNT 5.6 10*3/uL (4.8-10.8)
[2021-10-19 08:00] VITALS: BP 117/76
[2021-10-19 08:08] LABS: HEP B CORE AB, IGM Negative (Negative); HEPATITIS B SURFACE AG Negative (Negative)
[2021-10-19 08:24] LABS: HEPATITIS C VIRUS ANTIBODY >11.0 s/co (0.0-0.9)
[2021-10-20 00:06] LABS: TB1 Ag VALUE 0.07 IU/mL (.)
== END 2021-10-19 10:08 | disposition short-term general hospital (02) | DRG 193 ==
LOC: ED 10:50 → EDHOLD 10-16 04:10 → 5E 10-16 04:10
PROVIDERS: Emergency Medicine; Hospitalist; Internal Medicine; Internal Medicine Infectious Disease; Student in an Organized Health Care Education/Training Program; ADMIT Family Medicine; ATTEND Family Medicine
PROC: 02HV33Z Insertion of Infusion Device into Superior Vena Cava, Percutaneous Approach (ICD-10-PCS; 2021-10-16)
PROC: B548ZZA Ultrasonography of Superior Vena Cava, Guidance (ICD-10-PCS; 2021-10-16)
PROC: 30233N1 Transfusion of Nonautologous Red Blood Cells into Peripheral Vein, Percutaneous Approach (ICD-10-PCS; principal; 2021-10-17)
DX: I33.9 Acute and subacute endocarditis, unspecified (principal); E87.1 Hypo-osmolality and hyponatremia; N17.0 Acute kidney failure with tubular necrosis; F19.90 Other psychoactive substance use, unspecified, uncomplicated; E43 Unspecified severe protein-calorie malnutrition; A41.9 Sepsis, unspecified organism; D50.9 Iron deficiency anemia, unspecified; E87.6 Hypokalemia; E66.3 Overweight; I07.1 Rheumatic tricuspid insufficiency; I27.20 Pulmonary hypertension, unspecified; Z79.1 Long term (current) use of non-steroidal anti-inflammatories (NSAID); Z79.899 Other long term (current) drug therapy

== ENCOUNTER 2021-12-18 06:00 | Emergency (ER) | payer OTHER ==
[~2021-12-18] VITALS: Ht 172.7 cm; Wt 81.6 kg
[~2021-12-18 06:00] MED LIST changes: +BUPRENORPHINE-1 EAC1 SL
[2021-12-18 06:17] VITALS: BP 118/85
== END 2021-12-18 06:48 | disposition left against medical advice (07) ==
LOC: ED 06:00
DX: R50.9 Fever, unspecified (principal); Z79.899 Other long term (current) drug therapy

== ENCOUNTER 2022-04-15 22:09 | Emergency (ER) | payer OTHER ==
[~2022-04-15] VITALS: Ht 170.1 cm; Wt 86.2 kg
[2022-04-15 22:36] VITALS: BP 106/58
[2022-04-15] MEDS ORDERED: SEPTDS PO (22:38)
[2022-04-15] MEDS ORDERED: CEPHALEXIN500 M1 PO (22:38)
== END 2022-04-15 22:54 | disposition home or self-care (01) ==
LOC: ED 22:09
DX: L25.9 Unspecified contact dermatitis, unspecified cause (principal); L50.9 Urticaria, unspecified; F17.200 Nicotine dependence, unspecified, uncomplicated

== ENCOUNTER 2022-05-04 13:48 | Emergency (ER) | payer OTHER ==
[~2022-05-04] VITALS: Wt 86.2 kg
[2022-05-04 13:56] VITALS: BP 123/61
== END 2022-05-04 15:53 | disposition home or self-care (01) ==
LOC: ED 13:48
DX: S92.511A Displaced fracture of proximal phalanx of right lesser toe(s), initial encounter for closed fracture (principal); W22.8XXA Striking against or struck by other objects, initial encounter; Y93.89 Activity, other specified; Y92.89 Other specified places as the place of occurrence of the external cause; Y99.8 Other external cause status

== ENCOUNTER 2022-05-13 10:17 | Emergency (ER) | payer OTHER ==
[2022-05-13 10:31] VITALS: BP 124/78
[2022-05-13] MEDS ORDERED: VIBRA-TAB100 MG PO (11:23)
== END 2022-05-13 11:36 | disposition home or self-care (01) ==
LOC: ED 10:17
DX: L03.113 Cellulitis of right upper limb (principal); Z90.89 Acquired absence of other organs; F17.200 Nicotine dependence, unspecified, uncomplicated

== ENCOUNTER 2022-06-20 08:53 | Inpatient (IN) | payer OTHER ==
[~2022-06-20] VITALS: Ht 170.1 cm; Wt 80.3 kg
[~2022-06-20 08:53] MED LIST changes: +VIBRA-TAB100 MG PO
[2022-06-20 08:56] VITALS: BP 115/64
[2022-06-20 09:26] LABS: BASO # 0.1 10*3/uL (0.0-0.1); BASO % 1.2 % (0.0-1.0); EOS # 0.3 10*3/uL (0.0-0.4); EOS % 5.9 % (1.0-4.0); HEMATOCRIT 36.1 % (37.0-47.0); LYMPH # 2.5 10*3/uL (1.3-4.4); LYMPH % 49.7 % (27.0-41.0); MEAN CELL VOLUME 78.3 fl (81.0-99.0); MEAN CORPUSCULAR HGB CONC 29.4 g/dl (33.0-37.0); MEAN PLATELET VOLUME 9.7 fl (9.6-12.3); MONO # 0.3 10*3/uL (0.1-1.0); MONO % 6.9 % (3.0-9.0); NEUT # 1.8 10*3/uL (2.3-7.9); NEUT % 36.3 % (47.0-73.0); PLATELET COUNT AUTOMATED 218 10*3/uL (130-400); RED BLOOD COUNT 4.61 10*6/uL (4.10-5.10); RED CELL DISTRI WIDTH 16.1 % (0-14.5); WHITE BLOOD COUNT 4.9 10*3/uL (4.8-10.8)
[2022-06-20 09:51] LABS: BILIRUBIN Negative (Negative); BLOOD Negative (Negative); CLARITY Clear (Clear); COLOR Yellow (Yellow); GLUCOSE Negative (Negative); KETONE Negative (Negative); LEUKO ESTERASE Trace (Negative); NITRITE Negative (Negative); SPECIFIC GRAVITY 1.025 (1.001-1.030); UROBILINOGEN 0.2 E.U./dl (0.0-1.0)
[2022-06-20 09:54] LABS: ALKALINE PHOSPHATASE 86 U/L (45-117); BUN 13 mg/dl (7-24); CHLORIDE 111 mmol/L (98-107); CREATININE 0.73 mg/dL (0.55-1.02); POTASSIUM 4.4 mmol/L (3.5-5.1); SGOT/AST 25 IU/L (3-35); SGPT/ALT 37 U/L (12-78); SODIUM 142 mmol/L (136-145); TOTAL PROTEIN 6.8 gm/dL (6.4-8.2)
[2022-06-20 09:59] LABS: RBC 0-2 rbc/hpf (0-2)
[2022-06-20 10:01] LABS: URINE AMPHETAMINES > 1000 (1000ng/ml); URINE BARBITURATES < 200 (200ng/ml); URINE BENZODIAZEPINES < 200 (200ng/ml); URINE CANNABINOIDS (THC) < 50 (50ng/ml); URINE COCAINE < 300 (300ng/ml); URINE METHADONE < 300 (300ng/ml); URINE OPIATES < 300 (300ng/ml)
[2022-06-20 10:10] LABS: URINE PHENCYCLIDINE < 25 (25ng/ml)
[2022-06-20 11:09] VITALS: BP 118/68
[2022-06-20 11:45] VITALS: BP 103/71
[2022-06-20 16:00] VITALS: BP 98/62
[2022-06-20 20:00] VITALS: BP 101/54
[2022-06-21] VITALS: BP 96/51
[2022-06-21 08:00] VITALS: BP 98/55
[2022-06-21 12:00] VITALS: BP 98/50
[2022-06-21 16:00] VITALS: BP 101/53
[2022-06-21 20:00] VITALS: BP 100/49
[2022-06-22] VITALS: BP 98/64
[2022-06-22 08:00] VITALS: BP 101/62
[2022-06-22 12:00] VITALS: BP 98/50
[2022-06-22 16:00] VITALS: BP 97/52
[2022-06-22 20:00] VITALS: BP 107/72
[2022-06-23] VITALS: BP 102/65
== END 2022-06-23 12:02 | disposition home or self-care (01) | DRG 773 ==
LOC: ED 08:53 → EDHOLD 10:55 → 4E 10:55
PROVIDERS: Internal Medicine; ADMIT Internal Medicine; ATTEND Internal Medicine
DX: F11.23 Opioid dependence with withdrawal (principal); F15.10 Other stimulant abuse, uncomplicated; F41.9 Anxiety disorder, unspecified; F19.10 Other psychoactive substance abuse, uncomplicated; F17.210 Nicotine dependence, cigarettes, uncomplicated; E16.2 Hypoglycemia, unspecified; D50.9 Iron deficiency anemia, unspecified; E87.8 Other disorders of electrolyte and fluid balance, not elsewhere classified; Z71.6 Tobacco abuse counseling; Z83.79 Family history of other diseases of the digestive system

== ENCOUNTER 2022-07-27 15:45 | Emergency (ER) | payer OTHER ==
[~2022-07-27] VITALS: Ht 172 cm; Wt 81.6 kg
[2022-07-27 16:16] VITALS: BP 102/59
== END 2022-07-27 19:20 | disposition home or self-care (01) ==
LOC: ED 15:45
DX: S00.83XA Contusion of other part of head, initial encounter (principal); F17.200 Nicotine dependence, unspecified, uncomplicated; W10.8XXA Fall (on) (from) other stairs and steps, initial encounter; Y93.89 Activity, other specified; Y92.89 Other specified places as the place of occurrence of the external cause; Y99.8 Other external cause status

== ENCOUNTER 2022-11-24 11:08 | Emergency (ER) | payer OTHER ==
[~2022-11-24] VITALS: Ht 172.7 cm; Wt 90.7 kg
[2022-11-24 11:13] VITALS: BP 123/76
[2022-11-24 12:00] LABS: BILIRUBIN Negative (Negative); BLOOD 2+ (Negative); CLARITY Clear (Clear); COLOR Yellow (Yellow); GLUCOSE Negative (Negative); KETONE Negative (Negative); LEUKO ESTERASE 1+ (Negative); NITRITE Negative (Negative); SPECIFIC GRAVITY 1.015 (1.001-1.030); UROBILINOGEN 0.2 E.U./dl (0.0-1.0)
== END 2022-11-24 12:32 | disposition home or self-care (01) ==
LOC: ED 11:08
PROVIDERS: Nurse Practitioner Family
DX: R10.2 Pelvic and perineal pain (principal); Z90.89 Acquired absence of other organs; F17.200 Nicotine dependence, unspecified, uncomplicated

== ENCOUNTER 2022-12-07 19:24 | Emergency (ER) | payer OTHER ==
[~2022-12-07] VITALS: Ht 172.7 cm; Wt 90.7 kg
[2022-12-07 19:43] VITALS: BP 115/71
[2022-12-07] MEDS ORDERED: IBUPROFEN600 MG PO (22:03)
[2022-12-07] MEDS ORDERED: CEPHALEXIN500 M1 PO (22:03)
== END 2022-12-07 22:19 | disposition home or self-care (01) ==
LOC: ED 19:24
DX: L60.0 Ingrowing nail (principal); Z90.89 Acquired absence of other organs; F17.200 Nicotine dependence, unspecified, uncomplicated; F19.90 Other psychoactive substance use, unspecified, uncomplicated

== ENCOUNTER 2022-12-28 20:12 | Emergency (ER) | payer OTHER ==
[~2022-12-28] VITALS: Ht 172.7 cm; Wt 90.7 kg
[~2022-12-28 20:12] MED LIST changes: +IBUPROFEN600 MG PO
[2022-12-28 20:33] VITALS: BP 120/70
== END 2022-12-28 22:09 | disposition home or self-care (01) ==
LOC: ED 20:12
DX: S92.354A Nondisplaced fracture of fifth metatarsal bone, right foot, initial encounter for closed fracture (principal); Z90.89 Acquired absence of other organs; F17.200 Nicotine dependence, unspecified, uncomplicated; X50.1XXA Overexertion from prolonged static or awkward postures, initial encounter; Y93.89 Activity, other specified; Y92.89 Other specified places as the place of occurrence of the external cause; Y99.8 Other external cause status

== ENCOUNTER → 2023-01-09 | Outpatient (CLI) | payer OTHER | END | disposition home or self-care (01) | LOC: ORTHO 01:41 | PROVIDERS: ATTEND Orthopaedic Surgery | DX: S92.351A Displaced fracture of fifth metatarsal bone, right foot, initial encounter for closed fracture (principal); X58.XXXA Exposure to other specified factors, initial encounter; Y93.89 Activity, other specified; Y92.89 Other specified places as the place of occurrence of the external cause; Y99.8 Other external cause status ==

== ENCOUNTER 2023-01-12 00:03 | Emergency (ER) | payer OTHER ==
[~2023-01-12] VITALS: Ht 170.1 cm; Wt 90.7 kg
[2023-01-12 00:13] VITALS: BP 108/41
[2023-01-12] MEDS ORDERED: BUPRENORPHINE-1 EAC1 SL (00:16)
== END 2023-01-12 01:19 | disposition home or self-care (01) ==
LOC: ED 00:03
DX: S92.354A Nondisplaced fracture of fifth metatarsal bone, right foot, initial encounter for closed fracture (principal); F17.200 Nicotine dependence, unspecified, uncomplicated; Z79.899 Other long term (current) drug therapy; Z90.89 Acquired absence of other organs; W18.39XA Other fall on same level, initial encounter; Y93.89 Activity, other specified; Y92.89 Other specified places as the place of occurrence of the external cause; Y99.8 Other external cause status

== ENCOUNTER 2023-01-23 20:43 | Emergency (ER) | payer OTHER ==
[2023-01-23 20:59] VITALS: BP 133/65
[2023-01-23] MEDS ORDERED: SEPTDS PO (21:15)
== END 2023-01-23 21:39 | disposition home or self-care (01) ==
LOC: ED 20:43
DX: N76.4 Abscess of vulva (principal); L02.31 Cutaneous abscess of buttock; Z79.899 Other long term (current) drug therapy; Z90.89 Acquired absence of other organs; F17.200 Nicotine dependence, unspecified, uncomplicated

== ENCOUNTER → 2023-02-03 | Outpatient (CLI) | payer OTHER ==
[~2023-02-03] MED LIST changes: +ONDANSETRON4 MG SL
== END | disposition home or self-care (01) ==
LOC: ORTHO 01:30
PROVIDERS: ATTEND Orthopaedic Surgery
DX: S92.351D Displaced fracture of fifth metatarsal bone, right foot, subsequent encounter for fracture with routine healing (principal); X58.XXXD Exposure to other specified factors, subsequent encounter

== ENCOUNTER 2023-02-06 11:52 | Emergency (ER) | payer OTHER ==
[~2023-02-06] VITALS: Ht 172.7 cm; Wt 86.2 kg
[~2023-02-06 11:52] MED LIST changes: -ONDANSETRON4 MG SL
[2023-02-06 13:00] LABS: BASO % 0.7 % (0.0-1.0); EOS # 0.1 10*3/uL (0.0-0.4); EOS % 1.5 % (1.0-4.0); HEMATOCRIT 32.2 % (37.0-47.0); LYMPH # 1.8 10*3/uL (1.3-4.4); LYMPH % 32.4 % (27.0-41.0); MEAN CELL VOLUME 73.9 fl (81.0-99.0); MEAN CORPUSCULAR HGB 20.9 pg (27.0-31.0); MEAN CORPUSCULAR HGB CONC 28.3 g/dl (33.0-37.0); MEAN PLATELET VOLUME 9.2 fl (9.6-12.3); MONO # 0.4 10*3/uL (0.1-1.0); MONO % 7.4 % (3.0-9.0); NEUT # 3.1 10*3/uL (2.3-7.9); NEUT % 57.8 % (47.0-73.0); PLATELET COUNT AUTOMATED 252 10*3/uL (130-400); RED BLOOD COUNT 4.36 10*6/uL (4.10-5.10); RED CELL DISTRI WIDTH 16.8 % (0-14.5); WHITE BLOOD COUNT 5.4 10*3/uL (4.8-10.8)
[2023-02-06 13:10] LABS: ACT PARTIAL THROMBO TIME 28.5 SECONDS (20.0-32.1); INTERNATIONAL NORM RATIO 1.2 (2.0-3.5)
[2023-02-06 13:24] LABS: ALKALINE PHOSPHATASE 78 U/L (46-116); BUN 7 mg/dl (9-23); CHLORIDE 104 mmol/L (98-107); POTASSIUM 3.7 mmol/L (3.4-5.1); SGPT/ALT 23 U/L (10-49); TOTAL PROTEIN 6.5 gm/dL (6.0-8.0)
[2023-02-06 15:44] VITALS: BP 118/70
[2023-02-06] MEDS ORDERED: ONDANSETRON4 MG SL (16:11)
== END 2023-02-06 16:17 | disposition home or self-care (01) ==
LOC: ED 11:52
PROVIDERS: Physician Assistant
DX: R07.9 Chest pain, unspecified (principal); R10.9 Unspecified abdominal pain; R11.2 Nausea with vomiting, unspecified; Z79.899 Other long term (current) drug therapy; Z90.89 Acquired absence of other organs; F17.200 Nicotine dependence, unspecified, uncomplicated

== ENCOUNTER 2023-05-15 17:08 | Emergency (ER) | payer OTHER ==
[~2023-05-15] VITALS: Ht 172.7 cm; Wt 84.4 kg
[~2023-05-15 17:08] MED LIST changes: +ONDANSETRON4 MG SL
[2023-05-15 17:19] VITALS: BP 140/78
== END 2023-05-15 18:22 | disposition home or self-care (01) ==
LOC: ED 17:08
DX: S61.211A Laceration without foreign body of left index finger without damage to nail, initial encounter (principal); Z90.89 Acquired absence of other organs; F17.200 Nicotine dependence, unspecified, uncomplicated; W26.9XXA Contact with unspecified sharp object(s), initial encounter; Y93.89 Activity, other specified; Y92.89 Other specified places as the place of occurrence of the external cause; Y99.8 Other external cause status

== ENCOUNTER 2023-07-08 20:33 | Emergency (ER) | payer OTHER ==
[~2023-07-08] VITALS: Ht 165.1 cm; Wt 89.4 kg
[2023-07-08 21:12] LABS: BASO % 0.4 % (0.0-1.0); EOS # 0.2 10*3/uL (0.0-0.4); EOS % 3.2 % (1.0-4.0); HEMATOCRIT 34.5 % (37.0-47.0); LYMPH # 1.9 10*3/uL (1.3-4.4); LYMPH % 41.4 % (27.0-41.0); MEAN CELL VOLUME 75.2 fl (81.0-99.0); MEAN CORPUSCULAR HGB 22.2 pg (27.0-31.0); MEAN CORPUSCULAR HGB CONC 29.6 g/dl (33.0-37.0); MEAN PLATELET VOLUME 9.2 fl (9.6-12.3); MONO # 0.2 10*3/uL (0.1-1.0); MONO % 5.1 % (3.0-9.0); NEUT # 2.3 10*3/uL (2.3-7.9); NEUT % 49.7 % (47.0-73.0); PLATELET COUNT AUTOMATED 222 10*3/uL (130-400); RED BLOOD COUNT 4.59 10*6/uL (4.10-5.10); RED CELL DISTRI WIDTH 16.6 % (0-14.5); WHITE BLOOD COUNT 4.7 10*3/uL (4.8-10.8)
[2023-07-08 21:26] LABS: ACT PARTIAL THROMBO TIME 25.4 SECONDS (20.0-32.1); INTERNATIONAL NORM RATIO 1.1 (2.0-3.5)
[2023-07-08 21:30] VITALS: BP 134/62
[2023-07-08 21:41] LABS: ALKALINE PHOSPHATASE 71 U/L (46-116); BUN 5 mg/dl (9-23); CHLORIDE 106 mmol/L (98-107); LIPASE 27 U/L (12-53); POTASSIUM 3.5 mmol/L (3.4-5.1); SGPT/ALT 19 U/L (5-49); TOTAL PROTEIN 7.3 gm/dL (6.0-8.0)
== END 2023-07-08 23:22 | disposition home or self-care (01) ==
LOC: ED 20:33
PROVIDERS: Physician Assistant Medical
DX: R40.4 Transient alteration of awareness (principal); T40.2X1A Poisoning by other opioids, accidental (unintentional), initial encounter; Z90.89 Acquired absence of other organs; F17.290 Nicotine dependence, other tobacco product, uncomplicated; Y92.009 Unspecified place in unspecified non-institutional (private) residence as the place of occurrence of the external cause

== ENCOUNTER 2023-07-27 09:35 | Emergency (ER) | payer OTHER ==
[~2023-07-27] VITALS: Ht 170.1 cm; Wt 88.5 kg
[2023-07-27 10:28] LABS: ACT PARTIAL THROMBO TIME 32.5 SECONDS (20.0-32.1)
[2023-07-27 10:31] LABS: BILIRUBIN 1+ (Negative); BLOOD 3+ (Negative); CLARITY Turbid (Clear); COLOR Dark Yellow (Yellow); GLUCOSE Negative (Negative); KETONE Trace (Negative); LEUKO ESTERASE Trace (Negative); NITRITE Negative (Negative); SPECIFIC GRAVITY 1.025 (1.001-1.030)
[2023-07-27 10:39] LABS: URINE AMPHETAMINES Positive (1000ng/ml); URINE BARBITURATES Negative (200ng/ml); URINE BENZODIAZEPINES Negative (200ng/ml); URINE CANNABINOIDS (THC) Negative (50ng/ml); URINE COCAINE Negative (300ng/ml); URINE METHADONE Negative (300ng/ml); URINE OPIATES Negative (300ng/ml); URINE PHENCYCLIDINE Negative (25ng/ml)
[2023-07-27 10:55] LABS: BACTERIA 2+; EPITHELIAL CELLS 0-2
[2023-07-27 11:17] LABS: HEMATOCRIT 32.2 % (37.0-47.0); MEAN CELL VOLUME 67.9 fl (81.0-99.0); MEAN CORPUSCULAR HGB 22.2 pg (27.0-31.0); MEAN CORPUSCULAR HGB CONC 32.6 g/dl (33.0-37.0); PLATELET COUNT AUTOMATED 32 10*3/uL (130-400); RED BLOOD COUNT 4.74 10*6/uL (4.10-5.10); RED CELL DISTRI WIDTH 16.8 % (0-14.5); WHITE BLOOD COUNT 3.4 10*3/uL (4.8-10.8)
[2023-07-27 11:20] LABS: MANUAL DIFF REFLEX YES
[2023-07-27 11:27] LABS: ALKALINE PHOSPHATASE 62 U/L (46-116); BUN 33 mg/dl (9-23); CHLORIDE 99 mmol/L (98-107); LIPASE 31 U/L (12-53); POTASSIUM 3.8 mmol/L (3.4-5.1); SGPT/ALT 63 U/L (5-49); TOTAL PROTEIN 6.5 gm/dL (6.0-8.0)
[2023-07-27 11:30] LABS: BETA-HCG, QUANT < 3.0 mIU/mL (3-10)
[2023-07-27 11:37] LABS: ATYPICAL LYMPHS 1 % (0-0); PLATELET SUFFICIENCY LOW (NORMAL)
[2023-07-27 11:38] LABS: BURR CELLS MODERATE; MICROCYTOSIS SLIGHT; OVALOCYTES FEW; POLYCHROMASIA SLIGHT
[2023-07-27 11:49] LABS: TOTAL CELLS COUNTED 100 #CELLS
[2023-07-27 23:48] VITALS: BP 106/51
== END 2023-07-28 00:04 | disposition short-term general hospital (02) ==
LOC: ED 09:35
PROVIDERS: Emergency Medicine
DX: R65.20 Severe sepsis without septic shock (principal); I38 Endocarditis, valve unspecified; I76 Septic arterial embolism; Z79.899 Other long term (current) drug therapy; Z90.89 Acquired absence of other organs; F17.200 Nicotine dependence, unspecified, uncomplicated

== ENCOUNTER 2023-09-21 09:19 | Emergency (ER) | payer OTHER | END 2023-09-21 10:44 | disposition left against medical advice (07) | LOC: ED 09:19 | DX: S99.929A Unspecified injury of unspecified foot, initial encounter (principal); Z53.21 Procedure and treatment not carried out due to patient leaving prior to being seen by health care provider; X58.XXXA Exposure to other specified factors, initial encounter; Y93.89 Activity, other specified; Y92.89 Other specified places as the place of occurrence of the external cause; Y99.8 Other external cause status ==

== ENCOUNTER → 2023-09-27 | Outpatient (CLI) | payer OTHER ==
[~2023-09-27] MED LIST changes: +ASPIRIN ADULT L81 M1 PO; +BUMETANIDE1 MG PO; +BUMETANIDE2 MG PO; +BUSPAR15 MG PO; +BUSPAR5 MG PO; +IRON325 M3 PO; +LATU20TA PO
[2023-09-27 10:48] LABS: HEMATOCRIT 32.1 % (37.0-47.0); MEAN CELL VOLUME 86.8 fl (81.0-99.0); MEAN CORPUSCULAR HGB 27.3 pg (27.0-31.0); MEAN CORPUSCULAR HGB CONC 31.5 g/dl (33.0-37.0); MEAN PLATELET VOLUME 9.2 fl (9.6-12.3); RED BLOOD COUNT 3.7 10*6/uL (4.10-5.10); RED CELL DISTRI WIDTH 16.7 % (0-14.5); WHITE BLOOD COUNT 6.6 10*3/uL (4.8-10.8)
[2023-09-27 11:23] LABS: VITAMIN D, 25-HYDROXY 22.2 ng/mL (30-100)
[2023-09-27 11:24] LABS: ALKALINE PHOSPHATASE 83 U/L (46-116); BUN 14 mg/dl (9-23); CHLORIDE 104 mmol/L (98-107); CHOLESTEROL 168 mg/dL (<200); GAMMA GLUTAMYL TRANSPEPTIDASE 18 U/L (0-73); LDL CHOLESTEROL 94 mg/dL (9-159); POTASSIUM 3.8 mmol/L (3.4-5.1); TRIGLYCERIDES 131 mg/dl (<150)
[2023-09-27 11:25] LABS: SGPT/ALT < 7 U/L (5-49)
[2023-09-28 08:09] LABS: HBSAG Negative (Negative); HEP B CORE AB, IGM Negative (Negative)
[2023-09-29 21:06] LABS: HEPATITIS C QUANTITATION HCV Not Detected IU/mL (.)
== END | disposition home or self-care (01) ==
LOC: LAB 09:58
PROVIDERS: ATTEND Family Medicine
DX: I38 Endocarditis, valve unspecified (principal); J18.9 Pneumonia, unspecified organism; K21.9 Gastro-esophageal reflux disease without esophagitis; R53.83 Other fatigue; B19.20 Unspecified viral hepatitis C without hepatic coma

== ENCOUNTER 2023-09-29 14:10 | Inpatient (IN) | payer OTHER ==
[~2023-09-29] VITALS: Ht 172.7 cm; Wt 83.9 kg
[~2023-09-29 14:10] MED LIST changes: -ASPIRIN ADULT L81 M1 PO; -BUMETANIDE1 MG PO; -BUMETANIDE2 MG PO; -BUSPAR15 MG PO; -BUSPAR5 MG PO; -IRON325 M3 PO; -LATU20TA PO
[2023-09-29 14:24] VITALS: BP 111/72
[2023-09-29 15:14] LABS: BASO % 0.3 % (0.0-1.0); HEMATOCRIT 32.1 % (37.0-47.0); LYMPH # 0.8 10*3/uL (1.3-4.4); LYMPH % 8.4 % (27.0-41.0); MEAN CELL VOLUME 86.8 fl (81.0-99.0); MEAN CORPUSCULAR HGB 26.8 pg (27.0-31.0); MEAN CORPUSCULAR HGB CONC 30.8 g/dl (33.0-37.0); MONO # 0.3 10*3/uL (0.1-1.0); NEUT # 8.3 10*3/uL (2.3-7.9); NEUT % 87.9 % (47.0-73.0); PLATELET COUNT AUTOMATED 129 10*3/uL (130-400); RED CELL DISTRI WIDTH 17.6 % (0-14.5); WHITE BLOOD COUNT 9.5 10*3/uL (4.8-10.8)
[2023-09-29 15:29] LABS: ACT PARTIAL THROMBO TIME 31.9 SECONDS (20.0-32.1)
[2023-09-29 15:38] LABS: ALKALINE PHOSPHATASE 69 U/L (46-116); BUN 20 mg/dl (9-23); CHLORIDE 99 mmol/L (98-107); LIPASE 28 U/L (12-53); POTASSIUM 3.6 mmol/L (3.4-5.1); TOTAL PROTEIN 7.9 gm/dL (6.0-8.0)
[2023-09-29 15:43] LABS: SGPT/ALT < 7 U/L (5-49)
[2023-09-29 15:44] LABS: BETA-HCG, QUANT < 3.0 mIU/mL (3-10)
[2023-09-29] MEDS ORDERED: ASPIRIN ADULT L81 M1 PO (16:29)
[2023-09-29] MEDS ORDERED: BUMETANIDE1 MG PO (16:30)
[2023-09-29] MEDS ORDERED: BUMETANIDE2 MG PO (16:34)
[2023-09-29] MEDS ORDERED: BUSPAR5 MG PO (16:35)
[2023-09-29] MEDS ORDERED: BUSPAR15 MG PO (16:35)
[2023-09-29] MEDS ORDERED: LATU20TA PO (16:35)
[2023-09-29] MEDS ORDERED: IRON325 M3 PO (16:36)
[2023-09-29 19:31] VITALS: BP 98/71
[2023-09-29 22:22] LABS: BILIRUBIN 1+ (Negative); BLOOD 3+ (Negative); CLARITY Cloudy (Clear); COLOR Red (Yellow); GLUCOSE Negative (Negative); KETONE Negative (Negative); LEUKO ESTERASE 2+ (Negative); NITRITE Negative (Negative); PH 5.5 (4.5-8.0); UROBILINOGEN 0.2 E.U./dl (0.0-1.0)
[2023-09-29 22:30] LABS: BACTERIA 1+; RBC TNTC rbc/hpf (0-2); WBC 16-20 wbc/hpf (0-5)
[2023-09-29 23:00] VITALS: BP 93/58
[2023-09-30 01:56] LABS: URINE AMPHETAMINES Negative (1000ng/ml); URINE BARBITURATES Negative (200ng/ml); URINE BENZODIAZEPINES Negative (200ng/ml); URINE CANNABINOIDS (THC) Negative (50ng/ml); URINE COCAINE Negative (300ng/ml); URINE METHADONE Negative (300ng/ml); URINE OPIATES Negative (300ng/ml); URINE PHENCYCLIDINE Negative (25ng/ml)
[2023-09-30 03:15] VITALS: BP 110/86
[2023-09-30 06:32] VITALS: BP 94/50
[2023-09-30 08:00] LABS: BASO % 0.4 % (0.0-1.0); EOS % 0.2 % (1.0-4.0); HEMATOCRIT 23.9 % (37.0-47.0); LYMPH # 1.2 10*3/uL (1.3-4.4); LYMPH % 23.7 % (27.0-41.0); MEAN CELL VOLUME 87.5 fl (81.0-99.0); MEAN CORPUSCULAR HGB 27.1 pg (27.0-31.0); MEAN PLATELET VOLUME 9.5 fl (9.6-12.3); MONO # 0.2 10*3/uL (0.1-1.0); MONO % 4.5 % (3.0-9.0); NEUT # 3.5 10*3/uL (2.3-7.9); PLATELET COUNT AUTOMATED 92 10*3/uL (130-400); RED BLOOD COUNT 2.73 10*6/uL (4.10-5.10); RED CELL DISTRI WIDTH 17.9 % (0-14.5); WHITE BLOOD COUNT 4.9 10*3/uL (4.8-10.8)
[2023-09-30 08:25] LABS: ALKALINE PHOSPHATASE 50 U/L (46-116); BUN 28 mg/dl (9-23); CHLORIDE 106 mmol/L (98-107); CPK 149 U/L (34-171); FREE T4 0.93 ng/dl (0.89-1.76); POTASSIUM 3.3 mmol/L (3.4-5.1); TOTAL PROTEIN 6.2 gm/dL (6.0-8.0)
[2023-09-30 08:34] LABS: SGPT/ALT < 7 U/L (5-49)
[2023-09-30 12:24] VITALS: BP 106/75
[2023-10-01 06:36] LABS: HEMOGOLBIN A1C 5.1 % (4.8-5.6)
== END 2023-09-30 14:24 | disposition short-term general hospital (02) | DRG 720 ==
LOC: ED 14:10 → EDHOLD 18:07
PROVIDERS: Emergency Medicine; Internal Medicine; Student in an Organized Health Care Education/Training Program; ADMIT Internal Medicine; ATTEND Internal Medicine
DX: A41.9 Sepsis, unspecified organism (principal); N17.0 Acute kidney failure with tubular necrosis; E87.1 Hypo-osmolality and hyponatremia; D69.6 Thrombocytopenia, unspecified; E87.20 Acidosis, unspecified; R65.20 Severe sepsis without septic shock; F41.9 Anxiety disorder, unspecified; F17.210 Nicotine dependence, cigarettes, uncomplicated; R09.89 Other specified symptoms and signs involving the circulatory and respiratory systems; N39.0 Urinary tract infection, site not specified; R73.9 Hyperglycemia, unspecified; D64.9 Anemia, unspecified; R70.0 Elevated erythrocyte sedimentation rate; Z79.899 Other long term (current) drug therapy; Z79.82 Long term (current) use of aspirin; Z71.6 Tobacco abuse counseling

== ENCOUNTER → 2023-11-23 | Outpatient (CLI) | payer OTHER ==
[~2023-11-23] MED LIST changes: +ASPIRIN ADULT L81 M1 PO; +BUMETANIDE1 MG PO; +BUMETANIDE2 MG PO; +BUSPAR15 MG PO; +BUSPAR5 MG PO; +IRON325 M3 PO; +LATU20TA PO
[2023-11-23 12:28] LABS: BASO % 0.8 % (0.0-1.0); EOS # 0.4 10*3/uL (0.0-0.4); EOS % 7.3 % (1.0-4.0); HEMATOCRIT 36.7 % (37.0-47.0); LYMPH # 2.4 10*3/uL (1.3-4.4); LYMPH % 48.6 % (27.0-41.0); MEAN CELL VOLUME 96.1 fl (81.0-99.0); MEAN CORPUSCULAR HGB 30.1 pg (27.0-31.0); MEAN CORPUSCULAR HGB CONC 31.3 g/dl (33.0-37.0); MONO # 0.3 10*3/uL (0.1-1.0); MONO % 6.7 % (3.0-9.0); NEUT # 1.8 10*3/uL (2.3-7.9); NEUT % 36.4 % (47.0-73.0); PLATELET COUNT AUTOMATED 188 10*3/uL (130-400); RED BLOOD COUNT 3.82 10*6/uL (4.10-5.10); RED CELL DISTRI WIDTH 16.5 % (0-14.5); WHITE BLOOD COUNT 4.9 10*3/uL (4.8-10.8)
[2023-11-23 12:56] LABS: BUN 12 mg/dl (9-23); CHLORIDE 109 mmol/L (98-107)
== END | disposition home or self-care (01) ==
LOC: LAB 11:57
PROVIDERS: ATTEND Internal Medicine Infectious Disease
DX: R78.81 Bacteremia (principal); B95.62 Methicillin resistant Staphylococcus aureus infection as the cause of diseases classified elsewhere

== ENCOUNTER → 2023-11-28 | Outpatient (CLI) | payer OTHER ==
[2023-11-28 15:26] LABS: FREE T4 1.04 ng/dl (0.89-1.76)
== END | disposition home or self-care (01) ==
LOC: US 14:00 → LAB 14:04
PROVIDERS: ATTEND Family Medicine
DX: M79.672 Pain in left foot (principal); M79.604 Pain in right leg; R60.9 Edema, unspecified; M79.10 Myalgia, unspecified site; L65.9 Nonscarring hair loss, unspecified; M25.50 Pain in unspecified joint; F41.1 Generalized anxiety disorder; E74.00 Glycogen storage disease, unspecified; R01.1 Cardiac murmur, unspecified

== ENCOUNTER → 2023-12-25 | Outpatient (CLI) | payer OTHER | END | disposition home or self-care (01) | LOC: LAB 10:05 | PROVIDERS: ATTEND Family Medicine | DX: M25.571 Pain in right ankle and joints of right foot (principal); M25.572 Pain in left ankle and joints of left foot; R76.0 Raised antibody titer ==

== ENCOUNTER 2024-01-05 16:24 | Emergency (ER) | payer OTHER ==
[~2024-01-05] VITALS: Ht 170.1 cm; Wt 90.7 kg
[2024-01-05 16:30] VITALS: BP 129/80
[2024-01-05] MEDS ORDERED: ACETAMINOPHEN 325 MG TAB PO ONE (16:40)
[2024-01-05] MEDS ORDERED: SODIUM CHLORIDE 0.9% 1,000 ML IV SCH (16:55)
[2024-01-05 17:07] LABS: BASO % 0.2 % (0.0-1.0); EOS # 0.1 10*3/uL (0.0-0.4); EOS % 1.4 % (1.0-4.0); HEMATOCRIT 39.3 % (37.0-47.0); LYMPH # 0.5 10*3/uL (1.3-4.4); LYMPH % 12.2 % (27.0-41.0); MEAN CELL VOLUME 90.8 fl (81.0-99.0); MEAN CORPUSCULAR HGB CONC 33.1 g/dl (33.0-37.0); MEAN PLATELET VOLUME 9.3 fl (9.6-12.3); MONO # 0.2 10*3/uL (0.1-1.0); MONO % 3.9 % (3.0-9.0); NEUT # 3.6 10*3/uL (2.3-7.9); NEUT % 82.1 % (47.0-73.0); PLATELET COUNT AUTOMATED 153 10*3/uL (130-400); RED BLOOD COUNT 4.33 10*6/uL (4.10-5.10); RED CELL DISTRI WIDTH 12.3 % (0-14.5); WHITE BLOOD COUNT 4.3 10*3/uL (4.8-10.8)
[2024-01-05] MEDS ORDERED: TRAZODONE150 MG PO (17:10)
[2024-01-05] MEDS ORDERED: LAMICTAL25 MG PO (17:10)
[2024-01-05 17:22] LABS: BILIRUBIN 1+ (Negative); BLOOD 3+ (Negative); CLARITY Turbid (Clear); COLOR Dark Yellow (Yellow); GLUCOSE Negative (Negative); KETONE Trace (Negative); LEUKO ESTERASE 1+ (Negative); NITRITE Negative (Negative); PH 5.5 (4.5-8.0); SPECIFIC GRAVITY >= 1.030 (1.001-1.030)
[2024-01-05 17:29] LABS: BACTERIA 3+; BUN 8 mg/dl (9-23); CHLORIDE 107 mmol/L (98-107); POTASSIUM 3.7 mmol/L (3.4-5.1); RBC 21-30 rbc/hpf (0-2)
[2024-01-05] MEDS ORDERED: Ceftriaxone Sodium 1 GM/10 ML SYR IV ONE (17:35)
[2024-01-05] MEDS ORDERED: Ketorolac Tromethamine 30 MG/ML VIAL IV ONE (18:15)
[2024-01-05] MEDS ORDERED: Ondansetron Hydrochloride 4 MG/2 ML VIAL IV ONE (18:25)
[2024-01-05] MEDS ORDERED: VIBRAMYCIN100 MG PO (19:20)
== END 2024-01-05 19:30 | disposition home or self-care (01) ==
LOC: ED 16:24
PROVIDERS: Nurse Practitioner
DX: N39.0 Urinary tract infection, site not specified (principal); Z20.822 Contact with and (suspected) exposure to COVID-19; Z90.89 Acquired absence of other organs; F17.200 Nicotine dependence, unspecified, uncomplicated; F15.10 Other stimulant abuse, uncomplicated; F11.20 Opioid dependence, uncomplicated

== ENCOUNTER → 2024-02-26 | Outpatient (CLI) | payer OTHER ==
[~2024-02-26] MED LIST changes: +TRAZODONE150 MG PO
[2024-02-26 13:57] LABS: HEMATOCRIT 29.6 % (37.0-47.0); MEAN CELL VOLUME 83.6 fl (81.0-99.0); MEAN CORPUSCULAR HGB CONC 31.1 g/dl (33.0-37.0); MEAN PLATELET VOLUME 10.2 fl (9.6-12.3); RED BLOOD COUNT 3.54 10*6/uL (4.10-5.10); RED CELL DISTRI WIDTH 13.2 % (0-14.5); WHITE BLOOD COUNT 4.6 10*3/uL (4.8-10.8)
[2024-02-26 14:26] LABS: ALKALINE PHOSPHATASE 60 U/L (46-116); BUN 7 mg/dl (9-23); CHLORIDE 108 mmol/L (98-107); CHOLESTEROL 122 mg/dL (<200); LDL CHOLESTEROL 58 mg/dL (9-159); POTASSIUM 4.3 mmol/L (3.4-5.1); SGPT/ALT 18 U/L (5-49); TOTAL PROTEIN 6.6 gm/dL (6.0-8.0); TRIGLYCERIDES 82 mg/dl (<150)
[2024-02-26 14:41] LABS: VITAMIN D, 25-HYDROXY 35.9 ng/mL (30-100)
== END ==
LOC: LAB 13:43
PROVIDERS: ATTEND Family Medicine
DX: K21.9 Gastro-esophageal reflux disease without esophagitis (principal); E78.00 Pure hypercholesterolemia, unspecified; D64.9 Anemia, unspecified; R60.0 Localized edema; G47.00 Insomnia, unspecified; R53.83 Other fatigue

== ENCOUNTER 2024-03-06 17:34 | Emergency (ER) | payer OTHER ==
[~2024-03-06] VITALS: Ht 167.6 cm; Wt 93.0 kg
[2024-03-06] MEDS ORDERED: ACETAMINOPHEN 325 MG TAB PO ONE (18:15)
[2024-03-06] MEDS ORDERED: SODIUM CHLORIDE 0.9% 1,000 ML IV SCH (18:15)
[2024-03-06 18:46] LABS: HEMATOCRIT 32.7 % (37.0-47.0); MEAN CELL VOLUME 83.8 fl (81.0-99.0); MEAN CORPUSCULAR HGB 25.1 pg (27.0-31.0); MEAN PLATELET VOLUME 9.3 fl (9.6-12.3); PLATELET COUNT AUTOMATED 133 10*3/uL (130-400); RED CELL DISTRI WIDTH 14.6 % (0-14.5); WHITE BLOOD COUNT 5.6 10*3/uL (4.8-10.8)
[2024-03-06 18:47] LABS: MANUAL DIFF REFLEX YES
[2024-03-06 18:57] LABS: ACT PARTIAL THROMBO TIME 29.6 SECONDS (20.0-32.1)
[2024-03-06 19:05] LABS: ALKALINE PHOSPHATASE 51 U/L (46-116); BUN 12 mg/dl (9-23); CHLORIDE 107 mmol/L (98-107); CPK 142 U/L (34-171); POTASSIUM 3.6 mmol/L (3.4-5.1); SGPT/ALT 15 U/L (5-49); TOTAL PROTEIN 6.4 gm/dL (6.0-8.0)
[2024-03-06 19:07] LABS: TOTAL CELLS COUNTED 100 #CELLS
[2024-03-06 19:09] LABS: OVALOCYTES FEW; PLATELET SUFFICIENCY NORMAL (NORMAL)
[2024-03-06 19:10] LABS: ETHYL ALCOHOL < 3.0 mg/dl (<3)
[2024-03-06] MEDS ORDERED: MAGNESIUM SULFATE 50 ML IV ONE (19:20)
[2024-03-06] MEDS ORDERED: IOHEXOL 300 MG/ML 100 ML VIAL IV ONE (19:30)
[2024-03-06 19:41] LABS: BILIRUBIN Negative (Negative); BLOOD 3+ (Negative); CLARITY Clear (Clear); COLOR Orange (Yellow); GLUCOSE Negative (Negative); KETONE Negative (Negative); LEUKO ESTERASE Trace (Negative); NITRITE Negative (Negative); SPECIFIC GRAVITY 1.015 (1.001-1.030)
[2024-03-06 19:49] LABS: URINE AMPHETAMINES Negative (1000ng/ml); URINE BARBITURATES Negative (200ng/ml); URINE BENZODIAZEPINES Negative (200ng/ml); URINE CANNABINOIDS (THC) Negative (50ng/ml); URINE COCAINE Negative (300ng/ml); URINE METHADONE Negative (300ng/ml); URINE OPIATES Negative (300ng/ml); URINE PHENCYCLIDINE Negative (25ng/ml)
[2024-03-06 19:54] LABS: BACTERIA 1+; RBC 31-40 rbc/hpf (0-2)
[2024-03-06 21:05] VITALS: BP 108/50
[2024-03-07] MEDS ORDERED: VRAYLAR1.5 MG PO (20:44)
== END 2024-03-06 21:34 | disposition home or self-care (01) ==
LOC: ED 17:34
PROVIDERS: Nurse Practitioner Family
DX: B34.9 Viral infection, unspecified (principal); Z20.822 Contact with and (suspected) exposure to COVID-19; R42 Dizziness and giddiness; R00.0 Tachycardia, unspecified; E44.0 Moderate protein-calorie malnutrition; F41.9 Anxiety disorder, unspecified; F17.210 Nicotine dependence, cigarettes, uncomplicated; Z79.899 Other long term (current) drug therapy; Z90.89 Acquired absence of other organs

== ENCOUNTER → 2024-04-15 | Outpatient (CLI) | payer OTHER ==
[~2024-04-15] MED LIST changes: +VRAYLAR1.5 MG PO
[2024-04-15 12:09] LABS: BASO % 0.7 % (0.0-1.0); EOS # 0.2 10*3/uL (0.0-0.4); EOS % 4.2 % (1.0-4.0); HEMATOCRIT 34.5 % (37.0-47.0); LYMPH # 1.6 10*3/uL (1.3-4.4); LYMPH % 37.7 % (27.0-41.0); MEAN CELL VOLUME 83.9 fl (81.0-99.0); MEAN CORPUSCULAR HGB 26.3 pg (27.0-31.0); MEAN CORPUSCULAR HGB CONC 31.3 g/dl (33.0-37.0); MEAN PLATELET VOLUME 9.6 fl (9.6-12.3); MONO # 0.3 10*3/uL (0.1-1.0); MONO % 6.7 % (3.0-9.0); NEUT # 2.2 10*3/uL (2.3-7.9); NEUT % 50.5 % (47.0-73.0); PLATELET COUNT AUTOMATED 163 10*3/uL (130-400); RED BLOOD COUNT 4.11 10*6/uL (4.10-5.10); RED CELL DISTRI WIDTH 17.4 % (0-14.5); WHITE BLOOD COUNT 4.3 10*3/uL (4.8-10.8)
[2024-04-15 12:35] LABS: ALKALINE PHOSPHATASE 84 U/L (46-116); BUN 9 mg/dl (9-23); CHLORIDE 103 mmol/L (98-107); POTASSIUM 3.9 mmol/L (3.4-5.1); SGPT/ALT 12 U/L (5-49); TOTAL PROTEIN 7.4 gm/dL (6.0-8.0)
== END | disposition home or self-care (01) ==
LOC: LAB 11:42
PROVIDERS: ATTEND Internal Medicine Infectious Disease
DX: R78.81 Bacteremia (principal); B95.62 Methicillin resistant Staphylococcus aureus infection as the cause of diseases classified elsewhere

== ENCOUNTER 2024-04-23 17:23 | Emergency (ER) | payer OTHER ==
[~2024-04-23] VITALS: Ht 170.1 cm; Wt 90.7 kg
[2024-04-23 17:31] VITALS: BP 123/58
== END 2024-04-23 17:56 | disposition left against medical advice (07) ==
LOC: ED 17:23
DX: Z01.89 Encounter for other specified special examinations (principal); F17.200 Nicotine dependence, unspecified, uncomplicated; Z79.899 Other long term (current) drug therapy; Z90.89 Acquired absence of other organs; Z53.29 Procedure and treatment not carried out because of patient's decision for other reasons

== ENCOUNTER → 2024-04-24 | Outpatient (CLI) | payer OTHER ==
[2024-04-24 12:52] LABS: BASO % 0.8 % (0.0-1.0); EOS # 0.3 10*3/uL (0.0-0.4); EOS % 6.5 % (1.0-4.0); HEMATOCRIT 41.6 % (37.0-47.0); LYMPH # 1.7 10*3/uL (1.3-4.4); LYMPH % 43.4 % (27.0-41.0); MEAN CORPUSCULAR HGB 25.9 pg (27.0-31.0); MEAN CORPUSCULAR HGB CONC 30.8 g/dl (33.0-37.0); MEAN PLATELET VOLUME 9.9 fl (9.6-12.3); MONO # 0.2 10*3/uL (0.1-1.0); MONO % 4.9 % (3.0-9.0); NEUT # 1.7 10*3/uL (2.3-7.9); NEUT % 44.1 % (47.0-73.0); PLATELET COUNT AUTOMATED 174 10*3/uL (130-400); RED BLOOD COUNT 4.95 10*6/uL (4.10-5.10); RED CELL DISTRI WIDTH 17.8 % (0-14.5); WHITE BLOOD COUNT 3.9 10*3/uL (4.8-10.8)
[2024-04-24 13:16] LABS: ALKALINE PHOSPHATASE 75 U/L (46-116); BUN 6 mg/dl (9-23); CHLORIDE 110 mmol/L (98-107); POTASSIUM 4.1 mmol/L (3.4-5.1); SGPT/ALT 15 U/L (5-49); TOTAL PROTEIN 7.8 gm/dL (6.0-8.0)
== END | disposition home or self-care (01) ==
LOC: LAB 12:37
PROVIDERS: ATTEND Internal Medicine Infectious Disease
DX: R78.81 Bacteremia (principal); B95.62 Methicillin resistant Staphylococcus aureus infection as the cause of diseases classified elsewhere

== ENCOUNTER → 2024-05-01 | Outpatient (CLI) | payer OTHER ==
[2024-05-01 13:22] LABS: MEAN CELL VOLUME 84.1 fl (81.0-99.0); MEAN CORPUSCULAR HGB 26.5 pg (27.0-31.0); MEAN CORPUSCULAR HGB CONC 31.6 g/dl (33.0-37.0); MEAN PLATELET VOLUME 8.7 fl (9.6-12.3); RED BLOOD COUNT 4.52 10*6/uL (4.10-5.10); RED CELL DISTRI WIDTH 17.6 % (0-14.5)
[2024-05-01 13:33] LABS: ACT PARTIAL THROMBO TIME 27.6 SECONDS (20.0-32.1)
[2024-05-01 13:40] LABS: ALKALINE PHOSPHATASE 72 U/L (46-116); BUN 6 mg/dl (9-23); CHLORIDE 109 mmol/L (98-107); POTASSIUM 4.1 mmol/L (3.4-5.1); SGPT/ALT 13 U/L (5-49)
== END | disposition home or self-care (01) ==
LOC: LAB 13:10
PROVIDERS: ATTEND Family Medicine
DX: Z95.4 Presence of other heart-valve replacement (principal)

== ENCOUNTER → 2024-09-16 | Outpatient (CLI) | payer OTHER | END | disposition home or self-care (01) | LOC: MRI 08:00 | PROVIDERS: ATTEND Family Medicine | DX: M20.12 Hallux valgus (acquired), left foot (principal); M25.475 Effusion, left foot; M21.612 Bunion of left foot; M25.375 Other instability, left foot; M20.5X2 Other deformities of toe(s) (acquired), left foot; R60.0 Localized edema ==

== ENCOUNTER 2024-10-24 16:59 | Emergency (ER) | payer OTHER ==
[~2024-10-24] VITALS: Ht 170.1 cm; Wt 93.4 kg
[2024-10-24 17:33] VITALS: BP 105/70
[2024-10-24] MEDS ORDERED: VYVANSE30 MG PO (17:34)
[2024-10-24] MEDS ORDERED: ESCITALOPRAM OX10 MG PO (17:34)
[2024-10-24] MEDS ORDERED: LORAZEPAM1 MG PO (17:34)
== END 2024-10-24 19:18 | disposition home or self-care (01) ==
LOC: ED 16:59
DX: R09.A2 Foreign body sensation, throat (principal); F17.200 Nicotine dependence, unspecified, uncomplicated; Z79.899 Other long term (current) drug therapy; Z90.89 Acquired absence of other organs

== ENCOUNTER → 2024-11-13 | Outpatient (CLI) | payer OTHER ==
[~2024-11-13] MED LIST changes: +ESCITALOPRAM OX10 MG PO; +LORAZEPAM1 MG PO; +VYVANSE30 MG PO
[2024-11-13 13:13] LABS: HEMATOCRIT 42.8 % (37.0-47.0); MEAN CELL VOLUME 91.5 fl (81.0-99.0); MEAN CORPUSCULAR HGB 28.8 pg (27.0-31.0); MEAN CORPUSCULAR HGB CONC 31.5 g/dl (33.0-37.0); MEAN PLATELET VOLUME 8.9 fl (9.6-12.3); RED BLOOD COUNT 4.68 10*6/uL (4.10-5.10); RED CELL DISTRI WIDTH 12.9 % (0-14.5)
[2024-11-13 13:34] LABS: ALKALINE PHOSPHATASE 54 U/L (46-116); BUN 8 mg/dl (9-23); CHLORIDE 104 mmol/L (98-107); CHOLESTEROL 177 mg/dL (<200); LDL CHOLESTEROL 96 mg/dL (9-159); POTASSIUM 4.2 mmol/L (3.4-5.1); SGPT/ALT 13 U/L (5-49); TOTAL PROTEIN 6.8 gm/dL (6.0-8.0); TRIGLYCERIDES 81 mg/dl (<150)
[2024-11-13 14:05] LABS: VITAMIN D, 25-HYDROXY 21.5 ng/mL (30-100)
[2024-11-14 11:07] LABS: HBsAG SCREEN Negative (Negative); HEP B CORE Ab, IgM Negative (Negative)
== END | disposition home or self-care (01) ==
LOC: LAB 12:51
PROVIDERS: ATTEND Family Medicine
DX: Z00.00 Encounter for general adult medical examination without abnormal findings (principal); R53.83 Other fatigue; E78.5 Hyperlipidemia, unspecified; E55.9 Vitamin D deficiency, unspecified; B19.20 Unspecified viral hepatitis C without hepatic coma

== ENCOUNTER → 2025-01-13 | Outpatient (CLI) | payer OTHER ==
[2025-01-13 13:32] LABS: HEMATOCRIT 40.1 % (37.0-47.0); MEAN CELL VOLUME 87.9 fl (81.0-99.0); MEAN CORPUSCULAR HGB 28.5 pg (27.0-31.0); MEAN CORPUSCULAR HGB CONC 32.4 g/dl (33.0-37.0); MEAN PLATELET VOLUME 10.2 fl (9.6-12.3); RED BLOOD COUNT 4.56 10*6/uL (4.10-5.10); RED CELL DISTRI WIDTH 12.7 % (0-14.5); WHITE BLOOD COUNT 4.9 10*3/uL (4.8-10.8)
[2025-01-13 14:05] LABS: ALKALINE PHOSPHATASE 47 U/L (46-116); BUN 11 mg/dl (9-23); CHLORIDE 104 mmol/L (98-107); POTASSIUM 4.2 mmol/L (3.4-5.1); SGPT/ALT 11 U/L (5-49); TOTAL PROTEIN 6.9 gm/dL (6.0-8.0)
[2025-01-13 14:21] LABS: VITAMIN D, 25-HYDROXY 58.4 ng/mL (30-100)
== END | disposition home or self-care (01) ==
LOC: LAB 12:35
PROVIDERS: ATTEND Family Medicine
DX: Z01.818 Encounter for other preprocedural examination (principal); M79.672 Pain in left foot; E55.9 Vitamin D deficiency, unspecified; M20.42 Other hammer toe(s) (acquired), left foot; M21.612 Bunion of left foot

== ENCOUNTER 2025-01-20 18:12 | Emergency (ER) | payer OTHER ==
[~2025-01-20] VITALS: Ht 172.7 cm; Wt 90.7 kg
[2025-01-20 18:25] VITALS: BP 130/85
[2025-01-20] MEDS ORDERED: TRAMADOL HCL50 MG PO (20:08)
[2025-01-20] MEDS ORDERED: Ketorolac Tromethamine 30 MG/ML VIAL IM ONE (20:10)
== END 2025-01-20 20:28 | disposition home or self-care (01) ==
LOC: ED 18:12
DX: G89.18 Other acute postprocedural pain (principal); M79.662 Pain in left lower leg; R20.2 Paresthesia of skin; E44.0 Moderate protein-calorie malnutrition; F41.9 Anxiety disorder, unspecified; F17.200 Nicotine dependence, unspecified, uncomplicated; Z79.899 Other long term (current) drug therapy; Z90.89 Acquired absence of other organs

== ENCOUNTER → 2025-02-03 | Outpatient (CLI) | payer OTHER ==
[~2025-02-03] MED LIST changes: +TRAMADOL HCL50 MG PO
[2025-02-03 10:39] LABS: HEMATOCRIT 40.2 % (37.0-47.0); MEAN CELL VOLUME 87.8 fl (81.0-99.0); MEAN CORPUSCULAR HGB 27.9 pg (27.0-31.0); MEAN CORPUSCULAR HGB CONC 31.8 g/dl (33.0-37.0); MEAN PLATELET VOLUME 9.6 fl (9.6-12.3); RED BLOOD COUNT 4.58 10*6/uL (4.10-5.10); RED CELL DISTRI WIDTH 13.1 % (0-14.5); WHITE BLOOD COUNT 4.8 10*3/uL (4.8-10.8)
[2025-02-03 11:53] LABS: ALKALINE PHOSPHATASE 63 U/L (46-116); BUN 15 mg/dl (9-23); CHLORIDE 106 mmol/L (98-107); POTASSIUM 4.1 mmol/L (3.4-5.1); SGPT/ALT 10 U/L (5-49); TOTAL PROTEIN 6.7 gm/dL (6.0-8.0)
== END | disposition home or self-care (01) ==
LOC: LAB 09:45
PROVIDERS: ATTEND Family Medicine
DX: K21.9 Gastro-esophageal reflux disease without esophagitis (principal); D64.9 Anemia, unspecified; Z98.890 Other specified postprocedural states

== ENCOUNTER → 2025-03-06 | Outpatient (CLI) | payer OTHER ==
[2025-03-06 10:34] LABS: BASO % 0.7 % (0.0-1.0); EOS # 0.3 10*3/uL (0.0-0.4); EOS % 6.5 % (1.0-4.0); HEMATOCRIT 37.4 % (37.0-47.0); MEAN CORPUSCULAR HGB 27.1 pg (27.0-31.0); MEAN CORPUSCULAR HGB CONC 31.6 g/dl (33.0-37.0); MEAN PLATELET VOLUME 9.9 fl (9.6-12.3); MONO # 0.4 10*3/uL (0.1-1.0); MONO % 8.5 % (3.0-9.0); NEUT # 2.2 10*3/uL (2.3-7.9); NEUT % 50.2 % (47.0-73.0); PLATELET COUNT AUTOMATED 197 10*3/uL (130-400); RED BLOOD COUNT 4.35 10*6/uL (4.10-5.10); RED CELL DISTRI WIDTH 13.2 % (0-14.5); WHITE BLOOD COUNT 4.5 10*3/uL (4.8-10.8)
[2025-03-06 11:00] LABS: ALKALINE PHOSPHATASE 61 U/L (46-116); BUN 10 mg/dl (9-23); CHLORIDE 105 mmol/L (98-107); POTASSIUM 4.1 mmol/L (3.4-5.1); SGPT/ALT 10 U/L (5-49); TOTAL PROTEIN 7.2 gm/dL (6.0-8.0)
== END | disposition home or self-care (01) ==
LOC: LAB 10:19
PROVIDERS: ATTEND Podiatrist
DX: L08.9 Local infection of the skin and subcutaneous tissue, unspecified (principal)

== ENCOUNTER 2025-06-06 17:36 | Emergency (ER) | payer OTHER ==
[~2025-06-06] VITALS: Ht 172.7 cm; Wt 87.1 kg
[2025-06-06 17:42] VITALS: BP 112/64
[2025-06-06] MEDS ORDERED: METHYLPHENIDATE18 M3 PO (18:05)
[2025-06-06] MEDS ORDERED: ABILIFY10 MG PO (18:05)
[2025-06-06] MEDS ORDERED: VAZALORE81 MG PO (18:06)
[2025-06-06] MEDS ORDERED: IBUPROFEN 800 MG TAB PO ONE (18:15)
== END 2025-06-06 19:52 | disposition home or self-care (01) ==
LOC: ED 17:36
DX: S93.602A Unspecified sprain of left foot, initial encounter (principal); F90.9 Attention-deficit hyperactivity disorder, unspecified type; F41.9 Anxiety disorder, unspecified; F17.210 Nicotine dependence, cigarettes, uncomplicated; Z90.89 Acquired absence of other organs; Z79.82 Long term (current) use of aspirin; Z79.899 Other long term (current) drug therapy; V49.49XA Driver injured in collision with other motor vehicles in traffic accident, initial encounter; Y93.I9 Activity, other involving external motion; Y92.488 Other paved roadways as the place of occurrence of the external cause; Y99.8 Other external cause status